=== PATIENT | male | born 1935 | race Two or more races ===

== ENCOUNTER 2024-08-22 21:53 | Inpatient (IN) | payer MEDICARE, MEDICAID ==
[~2024-08-22] VITALS: Ht 167.6 cm; Wt 71.0 kg
[~2024-08-22 21:53] MED LIST: ASCO500T6 PO; FERR324T25 PO; MEMA1TAB5 PO; RIV20T PO; RIVA1DIS3 TD
--- NOTE | 2024-08-22 22:13 | ED.PDOC ---
History of Present Illness HPI Comments 88 y/o M, with a Hx of AFIB w/Xarelto use and dementia, is BIBA for c/o bilateral knees, left thigh and hip, and right elbow pain s/p mechanical fall and injury, today. Per EMS report, patient is a Mexican speaker and sustained injuries after tripping and falling onto his knees and right elbow without any head injuries or LOC, this morning. Patient is stated by family on scene not to have any prior symptoms before fall. Patient has no further reported symptoms, such as weakness, numbness, or tingling sensations. Further Hx cannot be obtained, due to patient being a poor historian secondary to his demented mental status and absence of family/bar staff presents, at time of assessment. Chief Complaint: Fall Injury Time Seen by MD: 22:00 Reviewed Notes: Nurses Notes, Certified Maintenance Welder Notes, Medications, Allergies Allergies: Coded Allergies: NO KNOWN ALLERGIES (Unverified , 08/22/24) Information Source: Patient, Emergency Med Personnel Mode of Arrival: EMS Severity: Moderate Timing: Hours Duration: Since onset Prehospital treatment: 12 Lead EKG, Accucheck, Inorganic Chemical Technician Past Medical History PAST MEDICAL HISTORY: AFIB, Dementia Surgical History: Unknown, Unobtainable Family History Family History: Unknown, Unobtainable Social History Smoker: Unknown, Unobtainable Alcohol: Unknown, Unobtainable Drugs: Unknown, Unobtainable Lives In: Home, Assisted Care Constitutional: denies: chills, diaphoresis, fatigue, fever, malaise, sweats, weakness, others EENTM: denies: blurred vision, double vision, ear bleeding, ear discharge, ear drainage, ear pain, ear ringing, eye pain, eye redness, hearing loss, mouth pain, mouth swelling, nasal discharge, nose bleeding, nose congestion, nose pain, photophobia, tearing, throat pain, throat swelling, voice changes, others Respiratory: denies: cough, hemoptysis, orthopnea, SOB at rest, shortness of breath, SOB with excertion, stridor, wheezing, others Cardiovascular: denies: chest pain, dizzy spells, diaphoresis, Dyspnea on exer tion, edema, irregular heart beat, left arm pain, lightheadedness, palpitations, PND, syncope, others Gastrointestinal: denies: abdomen distended, abdominal pain, blood streaked bowels, constipated, diarrhea, dysphagia, difficulty swallowing, hematemesis, melena, nausea, poor appetite, poor fluid intake, rectal bleeding, rectal pain, vomiting, others Genitourinary: denies: burning, dysuria, flank pain, frequency, hematuria, incontinence, penile discharge, penile sore, pain, testicle pain, testicle swelling, urgency, others Neurological: denies: dizziness, fainting, headache, left sided numbness, left sided weakness, numbness, paresthesia, pre-existing deficit, right sided numbness, right sided weakness, seizure, speech problems, tingling, tremors, weakness, others Musculoskeletal: reports: joint pain (bilateral knees, left thigh and hip, and right elbow ); denies: back pain, gout, joint swelling, muscle pain, muscle stiffness, neck pain, others Integumetry: denies: bruises, change in color, change in hair/nails, dryness, laceration, lesions, lumps, rash, wounds, others Allergic/Immunocompromised: denies: Difficulty Healing, Frequent Infections, Hives, Itching, others Hematologic/Lymphatic: denies: anemia, blood clots, easy bleeding, easy bruising, swollen glands, others Endocrine: denies: excessive hunger, excessive sweating, excessive thirst, excessive urination, flushing, intolerance to cold, intolerance to heat, unexplained weight gain, unexplained weight loss, others Psychiatric: denies: anxiety, bipolar disorder, depression, hopeless, panic d isorder, schizophrenia, sleepless, suicidal, others All Other Systems: Reviewed and Negative Physical Exam General Appearance: Moderate Distress HEENT: Normal ENT Inspection, Pharynx Normal, TMs Normal Neck: Full Range of Motion, Non-Tender, Normal, Normal Inspection Respiratory: Chest Non-Tender, Lungs Clear, No Accessory Muscle Use, No Respiratory Distress, Normal Breath Sounds Cardiovascular: No Edema, No JVD, No Murmur, No Gallop, Normal Peripheral Pulses, Regular Rate/Rhythm Breast Exam: Deferred Gastrointestinal: No Organomegaly, Non Tender, No Pulsatile Mass, Normal Bowel Sounds, Soft Genitalia: Deferred Pelvic: Deferred Rectal: Deferred Extremities: No calf tenderness, Normal capillary refill, No pedal edema Musculoskeletal : Location: Left Apperance: Limited ROM, Tenderness: Moderate Neurologic: Alert, assemblies and installations inspector II-XII nml as Tested, No Motor Deficits, Normal Affect, Normal Mood, No Sensory Deficits Cerebellar Function: Normal Reflexes: Normal Skin: Dry, Normal Color, Warm Lymphatic: No Adenopathy Was a procedure done? Was a procedure done?: No Differential Dx Considerations may include: dislocation, fracture, sprain, musculoskeletal pain, contusions, bruising X-Ray, Labs, Meds, VS Vital Signs Date Time Temp Pulse Resp B/P (MAP) Pulse Ox O2 Delivery O2 Flow Rate FiO2 08/22/24 23:00 98.3 67 19 107/38 (61) 99 98.3 08/22/24 21:56 97.7 112 18 100/65 (77) 94 PROCEDURE(s): PL2CT - PELVIS WO CONTRAST IMPRESSION: 1. Comminuted acute traumatic left intertrochanteric fracture. 2. Prostatomegaly. PROCEDURE(s): RELB - R ELBOW 2V XRAY FINDINGS/IMPRESSION: There is no evidence of acute fracture or dislocation. Small osseous fragment adjacent to the medial humeral epicondyle measuring 6 mm. This appears to be a congenital abnormality versus chronic lesion. The visualized joint space is well maintained. The alignment is anatomical. There is no radiopaque foreign body. IV Hep-Lock has been established We ordered morphine 2 mg IV push for the pain We ordered Zofran IV push for the nausea At this time the patient will be admitted to the hospitalist for the fracture to the left hip The labs are also pending An orthopedic surgery consult will be obtained. The patient is being admitted at this time Images Reviewed?: Images reviewed and evaluated by me Time of 1ST Reevaluation: 22:30 Reevaluation 1ST: Unchanged Time of 2ND Reevaluation: 23:57 Reevaluation 2ND: Unchanged Patient Education/Counseling: Other (patient has dementia) Family Education/Counseling: Diagnosis, Treatment, Prognosis Departure 1 Departure Time of Disposition: 23:58 Impression: Primary Impression: Fracture, intertrochanteric, left femur Qualified Codes: S72.145A - Nondisplaced intertrochanteric fracture of left femur, initial encounter for closed fracture Additional Impressions: History of fall Contusion of right elbow Qualified Codes: S50.01XA - Contusion of right elbow, initial encounter Disposition: ADMITTED INPATIENT Admit to: Med Surg Condition: Fair Critical Care Note Critical Care Time?: No Stability Stability form required: Yes Unstable for transfer: ED Physician Assesment (Clinical assesment) Heart Score Heart Score: Heart Score Response (Comments) Value History N/A 0 EKG N/A 0 Age N/A 0 Risk Factors N/A 0 Troponin N/A 0 Total 0 I personally scribed for SHAYLA BURRELL MD ([email or web address]) on 08/22/24 at 22:13. Electronically submitted by Augustin Gallagher ([email or web address]). I personally scribed for SHAYLA BURRELL MD ([email or web address]) on 08/22/24 at 23:56. Elec tronically submitted by Augustin Gallagher ([email or web address]). SHAYLA BURRELL MD Aug 22, 2024 22:13
--- NOTE | 2024-08-22 23:50 | DVH ---
CLINICAL INDICATION: fall TECHNIQUE: XY R ELBOW 2V XRAY Comparison: None FINDINGS/IMPRESSION: There is no evidence of acute fracture or dislocation. Small osseous fragment adjacent to the medial humeral epicondyle measuring 6 mm. This appears to be a congenital abnormality versus chronic lesion. The visualized joint space is well maintained. The alignment is anatomical. There is no radiopaque foreign body.
--- NOTE | 2024-08-22 23:53 | DVH ---
History: fall Comparison Study: None available at time of dictation. Technique: Multidetector spiral CT of the pelvis was performed from iliac crests to pubic symphysis. Axial, coronal and sagittal multiplanar reformats were performed by the technologist on a separate workstation. Radiation Dose : CT Dose: CTDI volume is 10.02 mGy. Dose-length product is 347.84 mGy*cm Findings: Visualized bowel: Small bowel and colon are normal in caliber and distribution. The appendix is not visualized; however, no secondary findings of acute appendicitis identified. Ascites: Absent Lymphadenopathy: No pelvic or mesenteric lymphadenopathy. Pelvis Wall and Mesentery: Unremarkable. Pelvic Organs: Prostatomegaly measuring up to 5.6 cm in transverse dimension. Musculoskeletal: Comminuted acute traumatic left intertrochanteric fracture. Bladder: Unremarkable IMPRESSION: 1. Comminuted acute traumatic left intertrochanteric fracture. 2. Prostatomegaly. END IMPRESSION:
[2024-08-23 00:20] LABS: Basophils # (auto) 0 10 ^3/uL (0-0.2); Eosinophils # (auto) 0 10 ^3/uL (0-0.8); Hemoglobin 11.9 g/dL (13.5-17.5); Mean Corpuscular Hemoglobin 34.6 pg (28.0-32.0); Monocytes # (auto) 0.9 10 ^3/uL (0-1.3); Neutrophils # (auto) 6.1 10 ^3/uL (1.6-8.6); Platelet Count (auto) 184 10^3/uL (140-450)
[2024-08-23 00:21] LABS: Basophils % (auto) 0.2 % (0.0-2.0); Hematocrit 35.1 % (41.0-53.0); Lymphocytes # (auto) 0.8 10 ^3/uL (0.4-5.4); Lymphocytes % (auto) 10.1 % (10.0-50.0); Mean Corpuscular Volume 101.6 fL (80.0-100.0); Monocytes % (auto) 11.9 % (0.0-12.0); Neutrophils % (auto) 77.8 % (37.0-80.0); Red Blood Cells 3.45 10^6/uL (4.5-5.90); Red Cell Distribution Width 14.1 % (11.8-14.3); White Blood Cell 7.9 10^3/uL (4.4-10.8)
[2024-08-23] MEDS: ONDANSETRON HCL 4 MG/2 ML VIAL IV ONE (00:23)
[2024-08-23 00:25] LABS: Chloride 109 mmol/L (98-107); Potassium 4.7 mmol/L (3.5-5.1); Sodium 141 mmol/L (136-145)
[2024-08-23] MEDS: MORPHINE SULFATE INJ 2 MG/ml SYRG IV ONE (00:25)
[2024-08-23 00:26] LABS: Anion Gap 9 (5-15); Carbon Dioxide 23 mmol/L (20-31)
[2024-08-23 00:27] LABS: Calcium 9.3 mg/dL (8.7-10.4)
[2024-08-23 00:31] LABS: BUN/Creatinine Ratio 15.6 (10.0-20.0); Blood Urea Nitrogen 25 mg/dL (9-23); Glucose 127 mg/dL (74-106)
[2024-08-23 01:06] VITALS: PULSE 86; RESP 18; O2SAT 96
[2024-08-23 05:18] LABS: Urine Bacteria None Seen /hpf (None Seen)
--- NOTE | 2024-08-23 05:43 | DVHHP2 ---
History of Present Illness Reason for Visit: Hip pain History of Present Illness 88-year-old male presents for evaluation of left hip pain. Patient with a history of dementia can not provide history. Seven was at the bedside reports patient falling out of his bed and being unable to bear weight on his left leg. No head trauma or loss of consciousness. No other acute complaints reported. Past Medical History Kidney disease, AFib, hypertension, dementia Past Surgical History Unknown Family History Noncontributory Smoke: No ALCOHOL: none Drugs: None Lives: Residential Review of Systems Review of Systems Unable to complete review of systems due to the advanced dementia. Allergies: Coded Allergies: NO KNOWN ALLERGIES (Unverified , 08/22/24) Medications Current Medications Medications Dose Ordered Sig/Efrain Route Start Time Stop Time Status Last Admin Dose Admin Acetaminophen/ Hydrocodone Bitart 1 tab Q4HP PRN PO 08/23/24 00:45 Ondansetron HCl 4 mg Q4HP PRN IV 08/23/24 00:45 Acetaminophen 650 mg Q6HP PRN PO 08/23/24 00:45 Morphine Sulfate 2 mg Q4HPRN PRN IV 08/23/24 00:45 Exam Vital Signs Vital Signs Date Time Temp Pulse Resp B/P (MAP) Pulse Ox O2 Delivery O2 Flow Rate FiO2 08/23/24 05:00 63 14 103/50 (67) 99 08/23/24 01:06 Room Air* 0 21 21 08/22/24 23:00 98.3 98.3 Exam Gen: 88-year-old male mild distress Skin: Warm, dry, normal color and texture, no rash. HEENT: Normocephalic atraumatic, mucous membranes moist and pink. Neck: Cervical and supraclavicular nodes normal without enlargement, trachea is midline, thyroid gland is normal without masses. Pulmonary: Clear to auscultation and percussion bilaterally. Cardiac: Regular rate and rhythm. No murmur Abdomen: Soft, nontender, nondistended, bowel sounds present all 4 quadrants, no guarding, no rigidity, no organomegaly. Extremities: No cyanosis, clubbing, left lower extremity with limited range of motion with positive distal pulses. Neuro: Cranial nerves II through XII grossly intact, normal affect and speech, no focal motor deficits. Labs/Xrays ORDERING PHYSICIAN: SHAYLA BURRELL MD PROCEDURE(s): RELB - R ELBOW 2V XRAY REASON: fall ORDER NUMBER(s): [id number], ACCESSION NUMBER(s): [id number] CLINICAL INDICATION: fall TECHNIQUE: XY R ELBOW 2V XRAY Comparison: None FINDINGS/IMPRESSION: There is no evidence of acute fracture or dislocation. Small osseous fragment adjacent to the medial humeral epicondyle measuring 6 mm. This appears to be a congenital abnormality versus chronic lesion. The visualized joint space is well maintained. The alignment is anatomical. There is no radiopaque foreign body. RING PHYSICIAN: SHAYLA BURRELL MD PROCEDURE(s): PL2CT - PELVIS WO CONTRAST REASON: fall ORDER NUMBER(s): [id number], ACCESSION NUMBER(s): [id number] History: fall Comparison Study: None available at time of dictation. Technique: Multidetector spiral CT of the pelvis was performed from iliac crests to pubic symphysis. Axial, coronal and sagittal multiplanar reformats were performed by the technologist on a separate workstation. Radiation Dose : CT Dose: CTDI volume is 10.02 mGy. Dose-length product is 347.84 mGy*cm Findings: Visualized bowel: Small bowel and colon are normal in caliber and distribution. The appendix is not visualized; however, no secondary findings of acute appendicitis identified. Ascites: Absent Lymphadenopathy: No pelvic or mesenteric lymphadenopathy. Pelvis Wall and Mesentery: Unremarkable. Pelvic Organs: Prostatomegaly measuring up to 5.6 cm in transverse dimension. Musculoskeletal: Comminuted acute traumatic left intertrochanteric fracture. Bladder: Unremarkable IMPRESSION: 1. Comminuted acute traumatic left intertrochanteric fracture. 2. Prostatomegaly. END IMPRESSION: Labs Test 08/23/24 05:00 08/23/24 00:00 Range/Units White Blood Count 7.9 4.4-10.8 10^3/uL Red Blood Count 3.45 L 4.5-5.90 10^6/uL Hemoglobin 11.9 L 13.5-17.5 g/dL Hematocrit 35.1 L 41.0-53.0 % Mean Corpuscular Volume 101.6 H 80.0-100.0 fL Mean Corpuscular Hemoglobin 34.6 H 28.0-32.0 pg Mean Corpuscular Hemoglobin Concent 34.0 32.0-36.0 g/dL Red Cell Distribution Width 14.1 11.8-14.3 % Platelet Count 184 140-450 10^3/uL Mean Platelet Volume 7.1 6.9-10.8 fL Neutrophils (%) (Auto) 77.8 37.0-80.0 % Lymphocytes (%) (Auto) 10.1 10.0-50.0 % Monocytes (%) (Auto) 11.9 0.0-12.0 % Eosinophils (%) (Auto) 0.0 0.0-7.0 % Basophils (%) (Auto) 0.2 0.0-2.0 % Neutrophils # (Auto) 6.1 1.6-8.6 10 ^3/uL Lymphocytes # (Auto) 0.8 0.4-5.4 10 ^3/uL Monocytes # (Auto) 0.9 0-1.3 10 ^3/uL Eosinophils # (Auto) 0 0-0.8 10 ^3/uL Basophils # (Auto) 0 0-0.2 10 ^3/uL Nucleated Red Blood Cells 0.0 % Sodium Level 141 136-145 mmol/L Potassium Level 4.7 3.5-5.1 mmol/L Chloride Level 109 H 98-107 mmol/L Carbon Dioxide Level 23 20-31 mmol/L Anion Gap 9 5-15 Blood Urea Nitrogen 25 H 9-23 mg/dL Creatinine 1.60 H 0.700-1.30 mg/dL Glomerular Filtration Rate Calc 41 >90 mL/min BUN/Creatinine Ratio 15.6 10.0-20.0 Serum Glucose 127 H 74-106 mg/dL Calcium Level 9.3 8.7-10.4 mg/dL Assessment/Plan Assessment/Plan Assessment Left femoral intertrochanteric fracture Dementia Chronic kidney disease Plan Admit the patient to [facility] to the hospitalist Orthopedic consultation NPO Pain management Continue treatment per orders. Plan discussed with: Other My Orders Orders - DAVID OSMAN Procedure Category Date Status Time *Consult Dr. Weston CONS 08/23/24 Transmitted Melia 00:41 Admit ADMIT 08/23/24 Transmitted 00:41 Hydrocodone-Acet PHA 11/20/24 In Process 5/325mg Tab ([place] 00:45 Ondansetron Hcl PHA 08/23/24 In Process (Zofran) 00:45 Complete Blood Count LAB 08/24/24 Verified 04:00 Comprehensive LAB 08/24/24 Verified Metabolic Panel 04:00 Npo (Nothing By DIET 08/23/24 Transmitted Mouth) Diet Breakfast Condition: Stable EREN 08/23/24 In Process 00:41 Acetaminophen Tablet PHA 08/23/24 In Process (Tylenol Tablet) 00:45 Bedrest With Bathroom EREN 08/23/24 In Process Privileg 00:41 Morphine Sulfate PHA 08/23/24 In Process Injection 00:45 Date of Service: Aug 23, 2024 Billing Provider: DAVID OSMAN Common Visit Codes: [id number] INP/OBS CARE (HIGH) DAVID OSMAN Aug 23, 2024 05:43
[2024-08-23 05:45] LABS: Urine Blood Negative /uL (Negative); Urine Clarity Turbid (Clear); Urine Color Yellow (Yellow); Urine Hyaline Cast FEW /lpf (0 - 2); Urine Protein, UAD 1+ (Negative); Urine Specific Gravity 1.028 (1.001-1.035); Urine Urobilinogen 2 mg/dL (Negative); Urine WBC 6 /hpf (0 - 3)
[2024-08-23 07:49] VITALS: PULSE 77; RESP 18; O2SAT 94
--- NOTE | 2024-08-23 10:18 | DVHINCON2 ---
ESTRADA QUICK 08/23/24 1018: Date of service: Aug 23, 2024 Reason for Consultation Left hip fracture History of Present Illness Mr. Flowers is an 88-year-old male who was brought to the hospital by his son due to concerns of left hip pain in the inability to ambulate since a fall yesterday morning. Patient has a history of dementia and was unable to provide history but patient's son was at bedside who reports that the patient fell out of bed yesterday morning and helped him back into bed and since he had not appear in pain thought he was fine but when he tried getting up and walking the patient reports that he was experiencing severe pain and was unable to bear weight. Patient's son reports that he was already having difficulty ambulating before this fall and would walk very slow with the assistance of a cane. Patient's son denied the patient experienced any head trauma, loss of consciousness, chest pain, shortness of breath, nausea, vomiting, fever, or chills. Past Medical History Kidney disease, AFib, hypertension, dementia Past Surgical History Denies Family History Noncontributory Social History Patient denies smoking, EtOH, or illicit substance abuse Allergies: Coded Allergies: NO KNOWN ALLERGIES (Unverified , 08/22/24) Current Medications Current Medications Medications (Trade) Dose Ordered Sig/Efrain Route PRN Reason Start Time Stop Time Status Last Admin Acetaminophen/ Hydrocodone Bitart ([place] 5/325MG Tab) 1 tab Q4HP PRN PO MODERATE PAIN (4-6 PAIN SCALE) 08/23/24 00:45 Ondansetron HCl (Zofran) 4 mg Q4HP PRN IV NAUSEA / VOMITING 08/23/24 00:45 Acetaminophen (Tylenol Tablet) 650 mg Q6HP PRN PO PAIN SCALE 1-3 OR TEMP>100.4 08/23/24 00:45 Morphine Sulfate 2 mg Q4HPRN PRN IV SEVERE PAIN (7-10 PAIN SCALE) 08/23/24 00:45 Haloperidol Lactate (Haldol) 2.5 mg Q4HP PRN IM AGITATION 08/23/24 10:00 UNV Review of Systems 10 point review of systems negative except as per HPI Vital Signs Vital Signs Date Time Temp Pulse Resp B/P (MAP) Pulse Ox O2 Delivery O2 Flow Rate FiO2 08/23/24 07:49 77 18 94 Room Air* 0 21 08/23/24 07:48 97.2 126/74 (91) 97.2 Physical Exam General appearance: A&O x4 in no acute distress HEENT: Normal ENT inspection, pharynx normal, TMs normal Neck: Full range of motion, nontender, normal inspection Respiratory: Chest nontender, without accessory muscle use, no respiratory distr ess Cardiovascular: No edema, no JVD, normal peripheral pulses Gastrointestinal: Soft, nontender, no organomegaly. Musculoskeletal: Left hip range of motion grossly limited with pain on slight movement, no calf tenderness, normal capillary refill, no pedal edema, neurovascularly intact. Skin: Dry, normal color, warm Lymphatic: No adenopathy Labs/Diagnostic Data Labs Test 08/23/24 09:36 08/23/24 05:00 08/23/24 00:00 Range/Units Urine Color Yellow Yellow Urine Clarity Turbid H Clear Urine pH 5.0 5.0-9.0 Urine Specific [place] 1.028 1.001-1.035 Urine Protein 1+ H Negative Urine Ketones Trace Negative Urine Blood Negative Negative /uL Urine Nitrite Negative Negative Urine Bilirubin Negative Negative Urine Urobilinogen 2 H Negative mg/dL Urine Leukocyte Esterase Negative Negative /uL Urine RBC 3 0 - 3 /hpf Urine WBC 6 0 - 3 /hpf Urine Squamous Epithelial Cells Few <5 /hpf Urine Bacteria None seen None Seen /hpf Urine Hyaline Casts Few 0 - 2 /lpf Urine Glucose Normal Normal mg/dL White Blood Count 7.9 4.4-10.8 10^3/uL Red Blood Count 3.45 L 4.5-5.90 10^6/uL Hemoglobin 11.9 L 13.5-17.5 g/dL Hematocrit 35.1 L 41.0-53.0 % Mean Corpuscular Volume 101.6 H 80.0-100.0 fL Mean Corpuscular Hemoglobin 34.6 H 28.0-32.0 pg Mean Corpuscular Hemoglobin Concent 34.0 32.0-36.0 g/dL Red Cell Distribution Width 14.1 11.8-14.3 % Platelet Count 184 140-450 10^3/uL Mean Platelet Volume 7.1 6.9-10.8 fL Neutrophils (%) (Auto) 77.8 37.0-80.0 % Lymphocytes (%) (Auto) 10.1 10.0-50.0 % Monocytes (%) (Auto) 11.9 0.0-12.0 % Eosinophils (%) (Auto) 0.0 0.0-7.0 % Basophils (%) (Auto) 0.2 0.0-2.0 % Neutrophils # (Auto) 6.1 1.6-8.6 10 ^3/uL Lymphocytes # (Auto) 0.8 0.4-5.4 10 ^3/uL Monocytes # (Auto) 0.9 0-1.3 10 ^3/uL Eosinophils # (Auto) 0 0-0.8 10 ^3/uL Basophils # (Auto) 0 0-0.2 10 ^3/uL Nucleated Red Blood Cells 0.0 % Sodium Level 141 136-145 mmol/L Potassium Level 4.7 3.5-5.1 mmol/L Chloride Level 109 H 98-107 mmol/L Carbon Dioxide Level 23 20-31 mmol/L Anion Gap 9 5-15 Blood Urea Nitrogen 25 H 9-23 mg/dL Creatinine 1.60 H 0.700-1.30 mg/dL Glomerular Filtration Rate Calc 41 >90 mL/min BUN/Creatinine Ratio 15.6 10.0-20.0 Serum Glucose 127 H 74-106 mg/dL Calcium Level 9.3 8.7-10.4 mg/dL Pelvic CT scan reviewed and demonstrated: 1. Comminuted acute traumatic left intertrochanteric fracture. 2. Prostatomegaly. Assessment Left intertrochanteric hip fracture Plan/Recommendation I had a lengthy discussion with the patient regarding nonoperative versus operative management and after discussing his case and reviewing his imaging studies with Dr. Reddy we have recommended an open versus closed IM nail fixation of his left intertrochanteric hip fracture. I discussed all of the risks and complications involved with surgery including but not limited to bleeding, infection, nerve injury, chronic pain, nonunion, malunion, need for further surgery, blood clots, DVT, PE, cardiac and pulmonary complications, and even . Patient and son understood and agreed to proceed with the surgery. We will plan to undergo surgery tomorrow afternoon if schedule allows and patient remains medically stable and is cleared from a cardiology standpoint. Thank you for allowing us to participate in the care of your patient. Plan discussed with: Patient TATIANA REDDY MD 08/24/24 1425: Allergies: Coded Allergies: NO KNOWN ALLERGIES (Unverified , 08/22/24) Plan discussed with: Patient, Son ESTRADA QUICK MARCELLO Aug 23, 2024 10:18 TATIANA REDDY MD Aug 24, 2024 14:25
[2024-08-23 10:19] LABS: INR 1.28 (0.9-1.15); Partial Thromboplastin Time 33.3 SEC (24.5-34.5); Prothrombin Time 13.3 sec (9.3-11.8)
[2024-08-23] MEDS: SODIUM CHLORIDE 0.9% 1,000 ML IV SCH (10:34)
--- NOTE | 2024-08-23 10:59 | DVH ---
left hip radiograph CLINICAL INDICATION: pre-op eval TECHNIQUE: 2 radiographic views of the left hip were obtained. Comparison: XY R ELBOW 2V XRAY on DOS: 08/22/24 FINDINGS: Comminuted acute traumatic left intertrochanteric fracture. IMPRESSION: Comminuted acute traumatic left intertrochanteric fracture.
--- NOTE | 2024-08-23 11:12 | DVH ---
EXAM: CT HEAD WITHOUT CONTRAST HISTORY: FALL COMPARISON: CT PELVIS WO CONTRAST on DOS: 08/22/24 TECHNIQUE: Axial images of the head were obtained and reformatted in coronal and sagittal planes. All CT scans at this medical facility are performed using dose modulation techniques as appropriate t o a performed exam including the following: Automated exposure control was utilized; adjustment of th e MA and/or KV according to patient size; and use of iterative reconstruction technique. CT Dose: CTDI volume is 53.02 mGy. Dose-length product is 1045.01 mGy*cm FINDINGS: There is a moderate size chronic cortical infarct in the left frontal lobe with associated encephalom alacia. There is age concordant generalized parenchymal volume loss. There are chronic small-vessel ischemic changes in the supratentorial white matter. There is no evidence of acute intracranial hemorrhage, mass, mass effect midline shift. There is no h ydrocephalus or extra-axial fluid collection. The visualized paranasal sinuses and mastoid air cells are clear. The calvarium is intact. IMPRESSION: 1. No acute intracranial process. 2. 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 HS:Y
[2024-08-23] MEDS: HALOPERIDOL LACTATE 5 MG/ML INJ VIAL IM PRN (12:22)
--- NOTE | 2024-08-23 14:34 | DVHPN2 ---
Reviewed: Care Plan, H&P, Labs, Medications, Previous Orders, Radiology Changes from previous H/P or p: No Changes Objective Vitals Vital Signs Date Time Temp Pulse Resp B/P (MAP) Pulse Ox O2 Delivery O2 Flow Rate FiO2 08/23/24 07:49 77 18 94 Room Air* 0 21 08/23/24 07:48 97.2 126/74 (91) 97.2 Medications Current Medications Medications Dose Ordered Sig/Efrain Route Start Time Stop Time Status Last Admin Dose Admin Acetaminophen/ Hydrocodone Bitart 1 tab Q4HP PRN PO 08/23/24 00:45 Ondansetron HCl 4 mg Q4HP PRN IV 08/23/24 00:45 Acetaminophen 650 mg Q6HP PRN PO 08/23/24 00:45 Morphine Sulfate 2 mg Q4HPRN PRN IV 08/23/24 00:45 Haloperidol Lactate 2.5 mg Q4HP PRN IM 08/23/24 10:00 08/23/24 12:22 2.5 MG Sodium Chloride 1,000 ml @ 100 mls/hr Q10H IV 08/23/24 10:15 08/23/24 10:34 100 MLS/HR Laboratory Results Laboratory Tests 08/23/24 00:00 Chemistry Test 08/23/24 00:00 Calcium Level 9.3 mg/dL (8.7-10.4) Coagulation Test 08/23/24 09:36 Prothrombin Time 13.3 sec (9.3-11.8) H Prothrombin Time INR 1.28 (0.9-1.15) H Activated Partial Thromboplast Time 33.3 SEC (24.5-34.5) Urinalysis Test 08/23/24 05:00 Urine Color Yellow (Yellow) Urine Clarity Turbid (Clear) H Urine pH 5.0 (5.0-9.0) Urine Specific [place] 1.028 (1.001-1.035) Urine Protein 1+ (Negative) H Urine Ketones Trace (Negative) Urine Blood Negative /uL (Negative) Urine Nitrite Negative (Negative) Urine Bilirubin Negative (Negative) Urine Urobilinogen 2 mg/dL (Negative) H Urine Leukocyte Esterase Negative /uL (Negative) Urine RBC 3 /hpf (0 - 3) Urine WBC 6 /hpf (0 - 3) Urine Squamous Epithelial Cells Few /hpf (<5) Urine Bacteria None seen /hpf (None Seen) Urine Hyaline Casts Few /lpf (0 - 2) Urine Glucose Normal mg/dL (Normal) Labs and/or images reviewed: Labs reviewed by me, Image(s) reviewed by me Assessment/Plan Assessment/Plan Acute right intertrochanteric feature femur: Orthopedic planning for surgery tomorrow Dementia Hypertension History of AFib Time spent 45 minutes Condition guarded Patient is full code Advanced care planning time 20 minutes Plan discussed with: Patient My Orders Orders - ABBIE PALOMINO MD Procedure Category Date Status Time Head Without Contrast CT 08/23/24 Resulted 09:50 Urine Bacterial DORINDA 08/23/24 In Process Culture 09:50 Haloperidol Lactate PHA 08/23/24 In Process Injection (Haldol) 10:00 Sodium Chloride 0.9% PHA 08/23/24 In Process 10:15 Date of Service: Aug 23, 2024 Billing Provider: ABBIE PALOMINO MD Common Visit Codes: [id number] INP/OBS CARE(HIGH) Secondary Visit Codes: [id number] CARE PLAN 30 MINUTES ABBIE PALOMINO MD Aug 23, 2024 14:34
--- NOTE | 2024-08-23 14:52 | ECG ---
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
[2024-08-23 19:50] VITALS: PULSE 100; RESP 16; O2SAT 93
[2024-08-23] MEDS: ONDANSETRON HCL 4 MG/2 ML VIAL IV PRN (23:47)
[2024-08-23] MEDS: MORPHINE SULFATE INJ 2 MG/ml SYRG IV PRN (23:47)
[2024-08-24] VITALS (8 sets, daily range): BP systolic 103–109; BP diastolic 57–68; PULSE 82–106; RESP 12–20; TEMP 97.9–98.7; O2SAT 93–99
[2024-08-24 06:34] LABS: Basophils # (auto) 0 10 ^3/uL (0-0.2); Basophils % (auto) 0.5 % (0.0-2.0); Eosinophils # (auto) 0 10 ^3/uL (0-0.8); Eosinophils % (auto) 0.6 % (0.0-7.0); Hematocrit 28.9 % (41.0-53.0); Mean Corpuscular Hgb Conc. 34.1 g/dL (32.0-36.0); Monocytes # (auto) 0.9 10 ^3/uL (0-1.3)
[2024-08-24 06:36] LABS: Hemoglobin 9.8 g/dL (13.5-17.5); Lymphocytes # (auto) 1.4 10 ^3/uL (0.4-5.4); Lymphocytes % (auto) 17.1 % (10.0-50.0); Mean Corpuscular Hemoglobin 35.3 pg (28.0-32.0); Mean Corpuscular Volume 103.5 fL (80.0-100.0); Monocytes % (auto) 10.8 % (0.0-12.0); Neutrophils # (auto) 5.9 10 ^3/uL (1.6-8.6); Platelet Count (auto) 147 10^3/uL (140-450); Red Blood Cells 2.79 10^6/uL (4.5-5.90); White Blood Cell 8.3 10^3/uL (4.4-10.8)
[2024-08-24 06:58] LABS: Alanine Aminotransferase 16 U/L (7-40); Albumin 3.1 g/dL (3.2-4.8); Alkaline Phosphatase 80 U/L (46-116); Anion Gap 9 (5-15); Aspartate Aminotransferase 41 U/L (13-40); BUN/Creatinine Ratio 18.7 (10.0-20.0); Blood Urea Nitrogen 25 mg/dL (9-23); Calcium 8.2 mg/dL (8.7-10.4); Carbon Dioxide 20 mmol/L (20-31); Chloride 112 mmol/L (98-107); Glucose 103 mg/dL (74-106); Potassium 4.5 mmol/L (3.5-5.1); Sodium 141 mmol/L (136-145); Total Protein 5.6 g/dL (5.7-8.2)
--- NOTE | 2024-08-24 08:42 | DVH ---
CHEST RADIOGRAPH Indication: Pre-op evaluation/pain Technique: Single frontal view of the chest was obtained Comparison: none FINDINGS: Lines and Tubes: None Lungs: No focal consolidation. Pleura: No effusion. No pneumothorax. Cardiomediastinal contours: Cardiomegaly Bones: No acute osseous abnormality. IMPRESSION: Cardiomegaly with CHF.
--- NOTE | 2024-08-24 08:45 | DVHPN2 ---
Reviewed: Care Plan, H&P, Labs, Medications, Previous Orders, Radiology Changes from previous H/P or p: No Changes Objective Vitals Vital Signs Date Time Temp Pulse Resp B/P (MAP) Pulse Ox O2 Delivery O2 Flow Rate FiO2 08/24/24 08:00 76 08/24/24 06:49 17 105/58 (74) 98 08/23/24 19:50 Room Air* 0 21 08/23/24 19:50 98.6 98.6 Medications Current Medications Medications Dose Ordered Sig/Efrain Route Start Time Stop Time Status Last Admin Dose Admin Acetaminophen/ Hydrocodone Bitart 1 tab Q4HP PRN PO 08/23/24 00:45 Ondansetron HCl 4 mg Q4HP PRN IV 08/23/24 00:45 08/24/24 00:23 4 MG Acetaminophen 650 mg Q6HP PRN PO 08/23/24 00:45 Morphine Sulfate 2 mg Q4HPRN PRN IV 08/23/24 00:45 08/24/24 00:22 2 MG Haloperidol Lactate 2.5 mg Q4HP PRN IM 08/23/24 10:00 08/23/24 12:22 2.5 MG Sodium Chloride 1,000 ml @ 100 mls/hr Q10H IV 08/23/24 10:15 08/24/24 06:21 100 MLS/HR Laboratory Results Laboratory Tests 08/24/24 06:09 Chemistry Test 08/24/24 06:06 08/24/24 06:09 Magnesium Level Pending Albumin 3.1 g/dL (3.2-4.8) L Calcium Level 8.2 mg/dL (8.7-10.4) L Total Protein 5.6 g/dL (5.7-8.2) L Coagulation Test 08/23/24 09:36 Prothrombin Time 13.3 sec (9.3-11.8) H Prothrombin Time INR 1.28 (0.9-1.15) H Activated Partial Thromboplast Time 33.3 SEC (24.5-34.5) Lipid panel Test 08/24/24 06:06 Cholesterol Level Pending HDL Cholesterol Pending Triglycerides Level Pending Cardiac Markers Test 08/24/24 06:06 B-Type Natriuretic Peptide Pending LFT Test 08/24/24 06:09 Alanine Aminotransferase (ALT) 16 U/L (7-40) Alkaline Phosphatase 80 U/L (46-116) Aspartate Amino Transferase (AST) 41 U/L (13-40) H Total Bilirubin 1.0 mg/dL (0.2-1.0) HgA1c, TSH Test 08/24/24 06:06 Hemoglobin A1c Pending Thyroid Stimulating Hormone (TSH) Pending Urinalysis Test 08/23/24 05:00 Urine Color Yellow (Yellow) Urine Clarity Turbid (Clear) H Urine pH 5.0 (5.0-9.0) Urine Specific [place] 1.028 (1.001-1.035) Urine Protein 1+ (Negative) H Urine Ketones Trace (Negative) Urine Blood Negative /uL (Negative) Urine Nitrite Negative (Negative) Urine Bilirubin Negative (Negative) Urine Urobilinogen 2 mg/dL (Negative) H Urine Leukocyte Esterase Negative /uL (Negative) Urine RBC 3 /hpf (0 - 3) Urine WBC 6 /hpf (0 - 3) Urine Squamous Epithelial Cells Few /hpf (<5) Urine Bacteria None seen /hpf (None Seen) Urine Hyaline Casts Few /lpf (0 - 2) Urine Glucose Normal mg/dL (Normal) Labs and/or images reviewed: Labs reviewed by me, Image(s) reviewed by me Assessment/Plan Assessment/Plan Acute right intertrochanteric feature femur: Orthopedic planning for surgery today Dementia Hypertension History of AFib Time spent 45 minutes Condition guarded Patient is full code Advanced care planning time 20 minutes Plan discussed with: Patient My Orders Orders - ABBIE PALOMINO MD Procedure Category Date Status Time Head Without Contrast CT 08/23/24 Resulted 09:50 Urine Bacterial DORINDA 08/23/24 In Process Culture 09:50 Haloperidol Lactate PHA 08/23/24 In Process Injection (Haldol) 10:00 Sodium Chloride 0.9% PHA 08/23/24 In Process 10:15 Document Home Meds ED NURSING 08/23/24 Transmitted Date of Service: Aug 24, 2024 Billing Provider: ABBIE PALOMINO MD Common Visit Codes: [id number] INP/OBS CARE(HIGH) ABBIE PALOMINO MD Aug 24, 2024 08:45
[2024-08-24 08:56] LABS: Magnesium 2.2 mg/dL (1.6-2.6)
--- NOTE | 2024-08-24 09:12 | DVHSR ---
APPROVED REPORT EXAM: Two-dimensional and M-mode echocardiogram with Doppler and color Doppler. Blood Pressure: 126/74 mmHg INDICATION Pre-Op RISK FACTORS Height: 5' 6", Weight: 150 DIMENSIONS LVDd4.2 (3.8-5.7cm)LA (2D)3.0 (1.9-4.0cm)Aortic Root3.3 (2.0-3.7cm) LVDs3.1 (2.5-4.0cm)LA (MM) (1.9-4.0cm)Aortic Cusp Exc2.0 (1.5-2.0cm) EF (%) 55.0 (55-70%)Rt. Atrium3.1 (1.9-4.0cm)Asc. Aorta cm IVSd1.2 (0.7-1.1cm)RV (D) (1.8-2.4cm) PWd1.1 (0.7-1.1cm) Mitral Valve MitralMitral Stenosis E wave0.70m/sMV Mean GR.mmHg A wave1.10m/sMV Peak GR.mmHg E/A ratio0.62D MVAcm2 Aortic Valve Aortic ValveAortic Stenosis V11.40m/Josiane Mean GR.4mmHg V21.40m/Josiane Peak GR.8mmHg LVOT Diameter2.3 (1.8-2.4cm)Doppler AVA4.15cm2 Pulmonic Valve V20.80m/s Tricuspid Valve TR Velocity2.60m/s [id number] Conclusion Normal left ventricular size and dimension. Normal left ventricular systolic function estimated ejec tion fraction 55%. There is a grade1 diastolic dysfunction. Normal right ventricular size and dimension. Normal right ventricular systolic function. Slightly i ncreased right ventricular systolic [id number] mm of mercury. Normal biatrial size and dimension. Normal aortic valve structure and function. Normal mitral valve structure and function. Normal tricuspid valve structure and function. Pulmonary valve is grossly normal. No pericardial effusion.
--- NOTE | 2024-08-24 09:36 | DVHINCON2 ---
Date Seen: Aug 24, 2024 Referring Physician SAM Murrieta Reason for Consultation Cardiac risk stratification History of Present Illness This is a 88-year-old Malay-speaking male patient who presents to the emergency room status post mechanical fall. At the time of assessment, the patient is only alert and oriented to self given his history of dementia. Patient son is at bedside who was able to provide history. According to the patient's son, the patient sustained an unwitnessed fall at home The patient was found out of bed and on the floor. The patient began complaining of pain to bilateral knees, left hip and right elbow. Emergency medical services were alessandro led and the patient was brought to the emergency room for further evaluation. Imaging has revealed a comminuted acute traumatic left intertrochanteric fracture. Orthopedic team has requested a cardiology consult for cardiac risk stratification prior to pending closed versus open ORIF of left hip fracture. Initial twelve lead electrocardiogram reveals normal sinus rhythm with inc omplete right bundle branch block and borderline prolonged QTc interval. Significant past medical history includes paroxysmal atrial fibrillation (on Xarelto) and dementia. The patient and his son are poor historians. 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 Past Medical History Past medical history reviewed. No other significant than mentioned above. Past Surgical History The patient's son reports that the patient has no previous surgeries Family History Family history reviewed. Social History Denies any illicit drug use Patient has a 30 pack-year history, quit smoking approximately 30 years ago Patient quit drinking alcohol approximately four years ago Allergies: Coded Allergies: NO KNOWN ALLERGIES (Unverified , 08/22/24) Home Meds Home medications reviewed. Current Medications Current Medications Medications (Trade) Dose Ordered Sig/Efrain Route PRN Reason Start Time Stop Time Status Last Admin Haloperidol Lactate (Haldol) 2.5 mg Q4HP PRN IM AGITATION 08/23/24 10:00 08/23/24 12:22 Sodium Chloride 1,000 ml @ 100 mls/hr Q10H IV 08/23/24 10:15 08/24/24 06:21 Review of Systems Constitutional: No symptom reported Ears, Nose, & Throat: No symptom reported Eyes: No symptom reported Neurological: No symptoms reported Pulmonary/Respiratory: No symptoms reported Cardiovascular: No symptom reported Gastrointestinal: No symptom reported Genitourinary: No symptom reported Musculoskeletal: Left hip pain Skin: No symptom reported Psychiatric: No symptom reported Endocrine: No symptom reported Hematologic/Lymphatic: No symptom reported Vital Signs Vital Signs Date Time Temp Pulse Resp B/P (MAP) Pulse Ox O2 Delivery O2 Flow Rate FiO2 08/24/24 09:21 92 08/24/24 07:45 16 93 Room Air* 0 08/24/24 07:45 99.4 132/54 (80) 99.4 Physical Exam General Appearance: Cooperative. Thin Pulmonary/Respiratory: Clear, bilateral breaths sounds. Cardiovascular/Chest: Regular rate and rhythm. Peripheral Pulses: 2+ Radial (R). 2+ Radial (L). Abdominal Exam: Normal bowel sounds. Ankle Exam: Negative ankle edema Lower extremities: Negative lower extremity edema Neuro/Mental Status: Alert and oriented to self. Thoughts/Psych: Deferred Appearance: No acute distress. Skin Exam: Normal inspection. Normal color. Warm and dry. Labs/Diagnostic Data Labs Test 08/24/24 06:09 08/24/24 06:06 08/23/24 09:36 08/23/24 05:00 Range/Units White Blood Count 8.3 4.4-10.8 10^3/uL Red Blood Count 2.79 L 4.5-5.90 10^6/uL Hemoglobin 9.8 #L 13.5-17.5 g/dL Hematocrit 28.9 #L 41.0-53.0 % Mean Corpuscular Volume 103.5 H 80.0-100.0 fL Mean Corpuscular Hemoglobin 35.3 H 28.0-32.0 pg Mean Corpuscular Hemoglobin Concent 34.1 32.0-36.0 g/dL Red Cell Distribution Width 14.0 11.8-14.3 % Platelet Count 147 140-450 10^3/uL Mean Platelet Volume 7.0 6.9-10.8 fL Neutrophils (%) (Auto) 71.0 37.0-80.0 % Lymphocytes (%) (Auto) 17.1 10.0-50.0 % Monocytes (%) (Auto) 10.8 0.0-12.0 % Eosinophils (%) (Auto) 0.6 0.0-7.0 % Basophils (%) (Auto) 0.5 0.0-2.0 % Neutrophils # (Auto) 5.9 1.6-8.6 10 ^3/uL Lymphocytes # (Auto) 1.4 0.4-5.4 10 ^3/uL Monocytes # (Auto) 0.9 0-1.3 10 ^3/uL Eosinophils # (Auto) 0 0-0.8 10 ^3/uL Basophils # (Auto) 0 0-0.2 10 ^3/uL Nucleated Red Blood Cells 0.0 % Sodium Level 141 136-145 mmol/L Potassium Level 4.5 3.5-5.1 mmol/L Chloride Level 112 H 98-107 mmol/L Carbon Dioxide Level 20 20-31 mmol/L Anion Gap 9 5-15 Blood Urea Nitrogen 25 H 9-23 mg/dL Creatinine 1.34 H 0.700-1.30 mg/dL Glomerular Filtration Rate Calc 51 >90 mL/min BUN/Creatinine Ratio 18.7 10.0-20.0 Serum Glucose 103 74-106 mg/dL Calcium Level 8.2 L 8.7-10.4 mg/dL Total Bilirubin 1.0 0.2-1.0 mg/dL Aspartate Amino Transferase (AST) 41 H 13-40 U/L Alanine Aminotransferase (ALT) 16 7-40 U/L Alkaline Phosphatase 80 46-116 U/L Total Protein 5.6 L 5.7-8.2 g/dL Albumin 3.1 L 3.2-4.8 g/dL Magnesium Level 2.2 1.6-2.6 mg/dL Triglycerides Level 92 < 150 mg/dL Cholesterol Level 97 < 200 mg/dL LDL Cholesterol 42 < 100 mg/dL HDL Cholesterol 37 L 40-59 mg/dL Thyroid Stimulating Hormone (TSH) 11.35 H 0.55-4.78 uIU/mL Prothrombin Time 13.3 H 9.3-11.8 sec Prothrombin Time INR 1.28 H 0.9-1.15 Activated Partial Thromboplast Time 33.3 24.5-34.5 SEC Urine Color Yellow Yellow Urine Clarity Turbid H Clear Urine pH 5.0 5.0-9.0 Urine Specific [place] 1.028 1.001-1.035 Urine Protein 1+ H Negative Urine Ketones Trace Negative Urine Blood Negative Negative /uL Urine Nitrite Negative Negative Urine Bilirubin Negative Negative Urine Urobilinogen 2 H Negative mg/dL Urine Leukocyte Esterase Negative Negative /uL Urine RBC 3 0 - 3 /hpf Urine WBC 6 0 - 3 /hpf Urine Squamous Epithelial Cells Few <5 /hpf Urine Bacteria None seen None Seen /hpf Urine Hyaline Casts Few 0 - 2 /lpf Urine Glucose Normal Normal mg/dL Assessment Preprocedural cardiovascular examination Paroxysmal atrial fibrillation (on Xarelto) Chronic HFpEF, NYHA class II Acute kidney injury ?Thyroid disease Dementia Plan/Recommendation (Dr. Beltran): Transthoracic echocardiogram reveals EF 55%, RVSP 35 mmHg. Chest x-ray reveals cardiomegaly. Revised cardiac risk index (René criteria): 1 point (6.0% risk of major cardiac event). The patient has an underlying history of congestive heart failure. Patient's family denies that the patient has any previous history of coronary artery disease. Prior to admission, the patient had a fair functional capacity, according to family. Per Cardiology standpoint, the patient is at a moderate risk for moderate risk surgery. There is no additional cardiac workup indicated prior to surgery. We will recommend to resume NOAC therapy within 24 hours status post procedure if there is a low postprocedural bleeding risk. We will recommend to resume NOAC therapy within 48-72 hours if there is a high postprocedural bleeding risk. Thank you for allowing us to care for this patient. Please call with any questions or concerns. Critical care time spent: 40 minutes This medical document was created using an electronic medical record system with voice recognition software and computerized dictation system. Although this document has been carefully reviewed, there might still be some phonetic and typographical errors. Occasional wrong-word or ``sound-alike substitutions may have occurred due to the inherent limitations of voice recognition software. These areas are purely typographical due to imperfections of the software programs and do not reflect any compromise in the patient's medical care. Please read the chart carefully and recognize, using context, where these substitutions have occurred. Plan discussed with: Patient, Son NYHA Physical activity limitations: Class2(Slight)fatigue,sob Date of Service: Aug 24, 2024 Billing Provider: KATIE BELTRAN MD Cardiology Common Codes: [id number] INP/OBS CARE (High) Cardiology Consultation Codes: [id number] CONSULT <45MIN PONCE THOMAS [facility] Aug 24, 2024 09:35
[2024-08-24] MEDS ORDERED: fentaNYL CITRATE 100 MCG/2 ML VL ONE (13:18)
[2024-08-24] MEDS ORDERED: HYDROmorphone HCL 2 MG/ML VL/or syr ONE (13:18)
[2024-08-24] MEDS ORDERED: MIDAZOLAM HCL 2MG/2ML 2ml VIAL (1mg/ml) ONE (13:18)
[2024-08-24] MEDS ORDERED: DexAMETHasone SOD PHOS 10MG/1ML VIAL INJ ONE (13:19)
[2024-08-24] MEDS ORDERED: PROPOFOL 10 MG/ML 20 ML IV ONE (13:19)
[2024-08-24] MEDS ORDERED: GLYCOPYRROLATE 0.2 MG/ML 1ML VIAL ONE (13:19)
--- NOTE | 2024-08-24 14:30 | DVHOP2 ---
Operative Report - 2 Report Details Date: 08/24/24 Preop Diagnosis: Left hip intertrochanteric fracture Postop Diagnosis: Left hip intertrochanteric fracture Surgeon: Tatiana Reddy MD Anesthesiologist: Dr. Cowna Anesthesia: Mac Implant: Arthrex AOS hip fracture system Consent: The patient was informed of the risks and benefits of the procedure. These include but are not limited to complications of anesthesia, postoperative infection, incomplete relief of symptoms, recurrence of symptoms, damage to blood vessels, nerves and tendons, deep venous thrombosis, pulmonary embolism and possible need for repeat surgery in the future. Estimated Blood Loss: Less than 10 mL Indications for Surgery: The patient is a 88-year-old male who presented to the emergency room with a history of hip pain status post fall. He was minimally ambulatory before the surgery. Clinical and radiological evaluation demonstrated intertrochanteric fracture. Nonoperative and operative management options were discussed. Surgery in the form of hip closed versus open reduction was discussed with him and his family with Hungarian interpretation. Benefits, risks and complications were discussed. Specific complications of the surgery such as neurovascular injury, infection, arthrofibrosis, malunion, nonunion, hardware failure loss of limb or life were discussed. He decided to proceed with the surgical option Name of Procedure Performed Left hip closed reduction with trochanteric nailing Procedure Details Procedure Details: Patient was identified in the preoperative holding area and the surgical site was marked. The consent was verified. He was brought into the operating room and placed supine on the operating table. General anesthesia was administered. Intravenous antibiotics were given. The extremity was prepped and draped in the usual sterile manner. A timeout was called out to confirm the identity of the patient, the nature of surgery, the site of surgery, the availability of implants and x-rays and allergies to medications. The patient was placed on the hip fracture distraction system. Other extremity was placed on support in abduction and flexion. The C-arm was brought in and gentle traction was applied, some abduction, internal rotation and adduction was then applied. This maneuver was repeated once for better reduction. Significant comminution of the greater trochanter was noted. An incision was made 2 cm proximal to the greater trochanter. The IT band was incised. The greater trochanter was palpated and a guidepin was inserted. AP and lateral views were obtained to confirm the trajectory. Next a proximal reamer was inserted to open up the canal. Next based on intraoperative measurements, a 9 mm proximal nail was inserted from the greater trochanter into the shaft. Good reduction was noted. AP and lateral views were obtained to confirm the trajectory of the nail. Next, the cephalic guidewire was inserted to hold the reduction. This was in acceptable position. Next the screw was inserted based on measurements. 90 mm screw was inserted. Compression was achieved using the system. Excellent reduction was noted both in the AP and lateral views. A distal bicortical locking screw was now inserted. Excellent fixation was noted. Irrigation was given. The iliotibial band was closed with 2-0 Ethibond in the proximal incision. All the skin incisions were closed with 2-0 Vicryl and then hira were used. Sterile dressing was applied. Local anesthetic was injected. Traction was released in both legs and the patient was moved to the stretcher. Condition Fair Disposition Still a Patient TATIANA REDDY MD Aug 24, 2024 14:30
[2024-08-24] MEDS ORDERED: HYDROmorphone HCL 2 MG/ML VL/or syr IV PRN ×2 (16:15)
[2024-08-24] MEDS ORDERED: fentaNYL CITRATE 100 MCG/2 ML VL IV PRN (16:15)
[2024-08-24] MEDS ORDERED: MORPHINE SULFATE INJ 2 MG/ml SYRG IV PRN (16:15)
--- NOTE | 2024-08-24 16:23 | DVH ---
C-ARM FLUOROSCOPY: PROCEDURE: Left hip ORIF FLUOROSCOPY TIME: 68.6 seconds DAP: 4.82 mgy FINDINGS: Spot intraoperative C arm radiographs demonstrating left hip ORIF. IMPRESSION: Please refer to surgical report for detailed findings.
[2024-08-24] MEDS: NALOXONE HCL 0.4 MG/ML VIAL IV PRN (17:48)
[2024-08-24] MEDS: ACETAMINOPHEN IV 1000 MG/100ML (10MG/ML) IV ONE (18:26)
[2024-08-24] MEDS: ceFAZolin 2 GM/D5W100ml 100 ML IV ONE (18:41)
[2024-08-24] MEDS: METOCLOPRAMIDE HCL 5MG/ml INJ 2ml VIAL IV ONE (18:41)
[2024-08-24] MEDS: BUPIVACAINE HCL 50 ML ONE (18:41)
[2024-08-24] MEDS: ACETAMINOPHEN IV 100 ML IV ONE (18:42)
[2024-08-24] MEDS: NALOXONE HCL 0.4 MG/ML VIAL ONE (18:42)
[2024-08-24] MEDS: KETOROLAC TROMETH 30 MG/ML 1ML VIAL IV ONE (18:42)
[2024-08-25] VITALS (8 sets, daily range): BP systolic 101–138; BP diastolic 55–79; PULSE 67–109; RESP 12–20; TEMP 97.6–99.5; O2SAT 91–99
--- NOTE | 2024-08-25 07:46 | DVHPN2 ---
Progress Note - Dictate Date Seen: Aug 25, 2024 Medical Necessity Reason Pt with a Central, PICC or Fol: No Subjective Patient was lying comfortably in bed during my evaluation and reports some postoperative hip pain that is being well managed with the help of pain medication. Patient is otherwise feeling well denying any other complaints or concerns during my evaluation. I spoke with the patient's nurse who reports that the patient has not yet come up out of bed to walk with physical therapy. vital signs Vital Sign Date Time Temp Pulse Resp B/P (MAP) Pulse Ox O2 Delivery O2 Flow Rate FiO2 08/25/24 05:23 79 16 117/68 (84) 95 08/24/24 21:00 97.9 97.9 08/24/24 20:00 Nasal Cannula* 2 28 Total Intake and Output 08/24/24 08/24/24 08/25/24 15:00 23:00 07:00 Intake Total 0 ml 468 ml Output Total 250 ml Balance 0 ml 218 ml medications Current Medications Medications Dose Ordered Sig/Efrain Route Start Time Stop Time Status Last Admin Dose Admin Acetaminophen/ Hydrocodone Bitart 1 tab Q4HP PRN PO 08/23/24 00:45 Ondansetron HCl 4 mg Q4HP PRN IV 08/23/24 00:45 08/24/24 00:23 4 MG Acetaminophen 650 mg Q6HP PRN PO 08/23/24 00:45 Morphine Sulfate 2 mg Q4HPRN PRN IV 08/23/24 00:45 08/24/24 00:22 2 MG Haloperidol Lactate 2.5 mg Q4HP PRN IM 08/23/24 10:00 08/23/24 12:22 2.5 MG Sodium Chloride 1,000 ml @ 100 mls/hr Q10H IV 08/23/24 10:15 08/24/24 02:15 100 MLS/HR objective Alert to name Hip range of motion grossly limited with pain on movement Dressings clean, dry, and intact No distal edema or calf tenderness to palpation Neurovascularly intact with cap refill less than 2 seconds laboratory and microbiology Laboratory Tests 08/24/24 06:09 Test 08/24/24 06:09 Range/Units Serum Glucose 103 74-106 mg/dL Assessment/Plan Left intertrochanteric hip fracture Continue current management as well as pain control and advised to initiate physical therapy and for patient to remain weight-bearing as tolerated with the assistance of a walker given his issues with his balance that has been occurring for several years before this most recent injury making him unsteady while ambulating. Patient's son expressed his wishes to transfer patient to a custodial facility to obtain assistance with the acute phase of his rehabilitation phase given he needs help getting up and out of bed and to use the restroom and he does not have people at home to help him while he is working. Recommend patient be considered for transfer to a custodial facility. I instructed the patient to follow up with our office in 10-14 days for his 1st postoperative evaluation and to call our office if he has any questions or concerns. He understood and agreed. Plan discussed with: Patient ESTRADA QUICK Aug 25, 2024 07:46
--- NOTE | 2024-08-25 10:17 | ECG ---
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
--- NOTE | 2024-08-25 10:56 | DVHPN2 ---
Reviewed: Care Plan, H&P, Labs, Medications, Previous Orders, Radiology Changes from previous H/P or p: No Changes Objective Vitals Vital Signs Date Time Temp Pulse Resp B/P (MAP) Pulse Ox O2 Delivery O2 Flow Rate FiO2 08/25/24 09:04 99.3 99 19 138/79 (98) 99 99.3 08/24/24 20:00 Nasal Cannula* 2 28 Intake/Output Intake and Output 08/25/24 07:00 Intake Total 468 ml Output Total 250 ml Balance 218 ml Intake Oral 468 ml Output Urine Total 250 ml Medications Current Medications Medications Dose Ordered Sig/Efrain Route Start Time Stop Time Status Last Admin Dose Admin Acetaminophen/ Hydrocodone Bitart 1 tab Q4HP PRN PO 08/23/24 00:45 Ondansetron HCl 4 mg Q4HP PRN IV 08/23/24 00:45 08/24/24 00:23 4 MG Acetaminophen 650 mg Q6HP PRN PO 08/23/24 00:45 Morphine Sulfate 2 mg Q4HPRN PRN IV 08/23/24 00:45 08/24/24 00:22 2 MG Haloperidol Lactate 2.5 mg Q4HP PRN IM 08/23/24 10:00 08/23/24 12:22 2.5 MG Sodium Chloride 1,000 ml @ 100 mls/hr Q10H IV 08/23/24 10:15 08/24/24 02:15 100 MLS/HR Laboratory Results Laboratory Tests 08/24/24 06:09 Urinalysis Test 08/23/24 05:00 Urine Color Yellow (Yellow) Urine Clarity Turbid (Clear) H Urine pH 5.0 (5.0-9.0) Urine Specific [place] 1.028 (1.001-1.035) Urine Protein 1+ (Negative) H Urine Ketones Trace (Negative) Urine Blood Negative /uL (Negative) Urine Nitrite Negative (Negative) Urine Bilirubin Negative (Negative) Urine Urobilinogen 2 mg/dL (Negative) H Urine Leukocyte Esterase Negative /uL (Negative) Urine RBC 3 /hpf (0 - 3) Urine WBC 6 /hpf (0 - 3) Urine Squamous Epithelial Cells Few /hpf (<5) Urine Bacteria None seen /hpf (None Seen) Urine Hyaline Casts Few /lpf (0 - 2) Urine Glucose Normal mg/dL (Normal) Microbiology Microbiology Date/Time Source Procedure Growth Status 08/23/24 05:00 Urine - Midstream Clean Catch Urine Culture - Preliminary Resulted Labs and/or images reviewed: Labs reviewed by me, Image(s) reviewed by me Assessment/Plan Assessment/Plan Acute right intertrochanteric feature femur: Status post Left hip closed reduction with trochanteric nail by Dr Reddy on 08-24-24 Dementia : Namenda 10 mg p.o. b.i.d. Hypertension History of AFib: Resume home medicine Xarelto 20 mg p.o. daily Chronic anemia: Iron tablets DVT prophylaxis Xarelto GI prophylaxis: Pantoprazole Time spent 45 minutes Condition guarded Patient is full code Advanced care planning time 20 minutes Plan discussed with: Patient Date of Service: Aug 25, 2024 Billing Provider: ABBIE PALOMINO MD Common Visit Codes: [id number] INP/OBS CARE(HIGH) ABBIE PALOMINO MD Aug 25, 2024 10:56
[2024-08-25] MEDS: PANTOPRAZOLE 40 MG/10 ML VIAL INJ IV ONE (11:19)
[2024-08-25] MEDS: ASCORBIC ACID 500 MG TAB PO ONE (11:21)
[2024-08-25] MEDS: FERROUS SULFATE 325mg EC TAB PO SCH (17:12)
[2024-08-25] MEDS: RIVAROXABAN 15 MG TAB PO SCH (17:12)
[2024-08-25] MEDS: MEMANTINE HCL 5 MG TAB PO SCH (22:10)
[2024-08-26] VITALS (8 sets, daily range): BP systolic 97–120; BP diastolic 46–89; PULSE 60–118; RESP 17–18; TEMP 97.7–99.6; O2SAT 92–97
--- NOTE | 2024-08-26 09:56 | DVHPN2 ---
Reviewed: Care Plan, H&P, Labs, Medications, Previous Orders, Radiology Changes from previous H/P or p: No Changes Objective Vitals Vital Signs Date Time Temp Pulse Resp B/P (MAP) Pulse Ox O2 Delivery O2 Flow Rate FiO2 08/26/24 08:39 97.7 118 17 111/89 (96) 95 97.7 08/25/24 20:00 Room Air* 0 21 Intake/Output Intake and Output 08/26/24 07:00 Intake Total 1150 ml Output Total 1250 ml Balance -100 ml Intake Oral 1150 ml Output Urine Total 1250 ml # Voids 1 Medications Current Medications Medications Dose Ordered Sig/Efrain Route Start Time Stop Time Status Last Admin Dose Admin Acetaminophen/ Hydrocodone Bitart 1 tab Q4HP PRN PO 08/23/24 00:45 Ondansetron HCl 4 mg Q4HP PRN IV 08/23/24 00:45 08/24/24 00:23 4 MG Acetaminophen 650 mg Q6HP PRN PO 08/23/24 00:45 Morphine Sulfate 2 mg Q4HPRN PRN IV 08/23/24 00:45 08/24/24 00:22 2 MG Haloperidol Lactate 2.5 mg Q4HP PRN IM 08/23/24 10:00 08/25/24 23:43 2.5 MG Sodium Chloride 1,000 ml @ 100 mls/hr Q10H IV 08/23/24 10:15 08/25/24 22:15 100 MLS/HR Rivaroxaban 15 mg QPM PO 08/25/24 18:00 08/25/24 17:12 15 MG Ascorbic Acid 500 mg DAILY PO 08/26/24 10:00 Memantine 5 mg Q12HR PO 08/25/24 22:00 08/25/24 22:10 5 MG Ferrous Sulfate 325 mg BIDWM PO 08/25/24 18:00 08/25/24 17:12 325 MG Pantoprazole Sodium 40 mg DAILY IV 08/26/24 10:00 Laboratory Results Laboratory Tests 08/24/24 06:09 Urinalysis Test 08/23/24 05:00 Urine Color Yellow (Yellow) Urine Clarity Turbid (Clear) H Urine pH 5.0 (5.0-9.0) Urine Specific [place] 1.028 (1.001-1.035) Urine Protein 1+ (Negative) H Urine Ketones Trace (Negative) Urine Blood Negative /uL (Negative) Urine Nitrite Negative (Negative) Urine Bilirubin Negative (Negative) Urine Urobilinogen 2 mg/dL (Negative) H Urine Leukocyte Esterase Negative /uL (Negative) Urine RBC 3 /hpf (0 - 3) Urine WBC 6 /hpf (0 - 3) Urine Squamous Epithelial Cells Few /hpf (<5) Urine Bacteria None seen /hpf (None Seen) Urine Hyaline Casts Few /lpf (0 - 2) Urine Glucose Normal mg/dL (Normal) Microbiology Microbiology Date/Time Source Procedure Growth Status 08/23/24 05:00 Urine - Midstream Clean Catch Urine Culture - Final Complete Labs and/or images reviewed: Labs reviewed by me, Image(s) reviewed by me Assessment/Plan Assessment/Plan Acute right intertrochanteric feature femur: Status post Left hip closed reduction with trochanteric nail by Dr Reddy on 08-24-24 Dementia : Namenda 10 mg p.o. b.i.d. Hypertension History of AFib: Resume home medicine Xarelto 20 mg p.o. daily Chronic anemia: Iron tablets DVT prophylaxis Xarelto GI prophylaxis: Pantoprazole Time spent 45 minutes Condition guarded Patient is full code Advanced care planning time 20 minutes Patient has power of upper marker son Tahir [phone]; his daughter Khushboo [phone] at bedside Other granddaughter Valorie [phone] also at bedside Requesting correction facility placement for rehab Plan discussed with: Patient My Orders Orders - ABBIE PALOMINO MD Procedure Category Date Status Time Ascorbic Acid Tablet PHA 08/26/24 In Process (Vitamin C Tablet) 10:00 Memantine Tablet PHA 08/25/24 In Process (Namenda Tablet) 22:00 Ferrous Sulfate Tablet PHA 08/25/24 In Process 18:00 Pt Request For Service PT 08/25/24 Logged 10:54 Pantoprazole PHA 08/26/24 In Process (Protonix) 10:00 Cardiac DIET 08/25/24 Transmitted Diet-2gna,Lofat,Lochol Lunch Rivaroxaban Tablet PHA 08/25/24 In Process (Xarelto Tablet) 18:00 Communication Order ORDERS 08/25/24 Transmitted 11:27 Date of Service: Aug 26, 2024 Billing Provider: ABBIE PALOMINO MD Common Visit Codes: [id number] INP/OBS CARE(HIGH) ABBIE PALOMINO MD Aug 26, 2024 09:56
[2024-08-26] MEDS: PANTOPRAZOLE 40 MG/10 ML VIAL INJ IV SCH (10:27)
[2024-08-26] MEDS: ASCORBIC ACID 500 MG TAB PO SCH (10:28)
[2024-08-26 13:49] LABS: COVID19 ANTIGEN SOFIA FIA NEGATIVE (NEGATIVE)
[2024-08-26] MEDS: LACTULOSE 20Gm/30ML SOLN PO ONE (13:59)
[2024-08-27] VITALS (8 sets, daily range): BP systolic 107–133; BP diastolic 57–70; PULSE 54–98; RESP 16–19; TEMP 98.1–100; O2SAT 94–98
[2024-08-27 06:46] LABS: Basophils # (auto) 0 10 ^3/uL (0-0.2); Basophils % (auto) 0.1 % (0.0-2.0); Eosinophils # (auto) 0.1 10 ^3/uL (0-0.8); Lymphocytes # (auto) 1.2 10 ^3/uL (0.4-5.4)
[2024-08-27 06:48] LABS: Eosinophils % (auto) 1.4 % (0.0-7.0); Hematocrit 23.5 % (41.0-53.0); Hemoglobin 8.1 g/dL (13.5-17.5); Lymphocytes % (auto) 15.3 % (10.0-50.0); Mean Corpuscular Hemoglobin 35.3 pg (28.0-32.0); Mean Corpuscular Hgb Conc. 34.4 g/dL (32.0-36.0); Mean Corpuscular Volume 102.7 fL (80.0-100.0); Monocytes # (auto) 0.8 10 ^3/uL (0-1.3); Monocytes % (auto) 9.8 % (0.0-12.0); Neutrophils # (auto) 5.8 10 ^3/uL (1.6-8.6); Neutrophils % (auto) 73.4 % (37.0-80.0); Nucleated Red Blood Cells % 0.1 %; Platelet Count (auto) 153 10^3/uL (140-450); Red Blood Cells 2.28 10^6/uL (4.5-5.90); Red Cell Distribution Width 14.2 % (11.8-14.3); White Blood Cell 7.9 10^3/uL (4.4-10.8)
[2024-08-27 06:58] LABS: Anion Gap 8 (5-15); Carbon Dioxide 22 mmol/L (20-31); Chloride 109 mmol/L (98-107); Potassium 3.8 mmol/L (3.5-5.1); Sodium 139 mmol/L (136-145)
[2024-08-27 07:00] LABS: Calcium 7.7 mg/dL (8.7-10.4)
[2024-08-27 07:04] LABS: BUN/Creatinine Ratio 22.6 (10.0-20.0); Blood Urea Nitrogen 19 mg/dL (9-23); Glucose 95 mg/dL (74-106)
--- NOTE | 2024-08-27 10:48 | DVHPN2 ---
Reviewed: Care Plan, H&P, Labs, Medications, Previous Orders, Radiology Changes from previous H/P or p: No Changes Objective Vitals Vital Signs Date Time Temp Pulse Resp B/P (MAP) Pulse Ox O2 Delivery O2 Flow Rate FiO2 08/27/24 09:00 98.9 87 16 132/57 (82) 94 98.9 08/26/24 20:00 Room Air* 0 21 Intake/Output Intake and Output 08/27/24 07:00 Intake Total 3840 ml Output Total 1250 ml Balance 2590 ml Intake Oral 1440 ml IV Total 2400 ml Output Urine Total 1250 ml # Voids 9 Medications Current Medications Medications Dose Ordered Sig/Efrain Route Start Time Stop Time Status Last Admin Dose Admin Acetaminophen/ Hydrocodone Bitart 1 tab Q4HP PRN PO 08/23/24 00:45 Ondansetron HCl 4 mg Q4HP PRN IV 08/23/24 00:45 08/24/24 00:23 4 MG Acetaminophen 650 mg Q6HP PRN PO 08/23/24 00:45 Morphine Sulfate 2 mg Q4HPRN PRN IV 08/23/24 00:45 08/26/24 10:28 2 MG Haloperidol Lactate 2.5 mg Q4HP PRN IM 08/23/24 10:00 08/25/24 23:43 2.5 MG Sodium Chloride 1,000 ml @ 100 mls/hr Q10H IV 08/23/24 10:15 08/27/24 01:53 100 MLS/HR Rivaroxaban 15 mg QPM PO 08/25/24 18:00 08/26/24 17:04 15 MG Ascorbic Acid 500 mg DAILY PO 08/26/24 10:00 08/27/24 09:13 500 MG Memantine 5 mg Q12HR PO 08/25/24 22:00 08/27/24 09:13 5 MG Ferrous Sulfate 325 mg BIDWM PO 08/25/24 18:00 08/27/24 09:13 325 MG Pantoprazole Sodium 40 mg DAILY IV 08/26/24 10:00 08/27/24 09:13 40 MG Laboratory Results Laboratory Tests 08/27/24 06:15 Chemistry Test 08/27/24 06:15 Calcium Level 7.7 mg/dL (8.7-10.4) L Urinalysis Test 08/23/24 05:00 Urine Color Yellow (Yellow) Urine Clarity Turbid (Clear) H Urine pH 5.0 (5.0-9.0) Urine Specific [place] 1.028 (1.001-1.035) Urine Protein 1+ (Negative) H Urine Ketones Trace (Negative) Urine Blood Negative /uL (Negative) Urine Nitrite Negative (Negative) Urine Bilirubin Negative (Negative) Urine Urobilinogen 2 mg/dL (Negative) H Urine Leukocyte Esterase Negative /uL (Negative) Urine RBC 3 /hpf (0 - 3) Urine WBC 6 /hpf (0 - 3) Urine Squamous Epithelial Cells Few /hpf (<5) Urine Bacteria None seen /hpf (None Seen) Urine Hyaline Casts Few /lpf (0 - 2) Urine Glucose Normal mg/dL (Normal) Microbiology Microbiology Date/Time Source Procedure Growth Status 08/23/24 05:00 Urine - Midstream Clean Catch Urine Culture - Final Complete Labs and/or images reviewed: Labs reviewed by me, Image(s) reviewed by me Assessment/Plan Assessment/Plan Acute left intertrochanteric fracture femur Status post Left hip closed reduction with trochanteric nail by Dr Reddy on 08-24-24 Dementia : Namenda 10 mg p.o. b.i.d. Hypertension History of AFib: Resume home medicine Xarelto 20 mg p.o. daily Chronic anemia: Iron tablets DVT prophylaxis Xarelto GI prophylaxis: Pantoprazole Stage III pressure ulcer right heel present on admission Time spent 45 minutes Condition guarded Patient is full code Advanced care planning time 20 minutes Patient has power of assistant district attorney son Tahir [phone]; his daughter Khushboo [phone] at bedside Other granddaughter Valorie [phone] also at bedside Requesting assisted facility placement for rehab Plan discussed with: Patient My Orders Orders - ABBIE PALOMINO MD Procedure Category Date Status Time * Wound Consult CONS 08/26/24 Transmitted Date of Service: Aug 27, 2024 Billing Provider: ABBIE PALOMINO MD Common Visit Codes: [id number] INP/OBS CARE(HIGH) ABBIE PALOMINO MD Aug 27, 2024 10:48
--- NOTE | 2024-08-27 11:01 | DVHDS2 ---
Discharge Summary Date of Admission Aug 23, 2024 at 00:44 Date of Discharge: Aug 27, 2024 Admitting Diagnosis Fracture left hip status post mechanical fall Wounds: Left hip fracture Labs/Diagnostic Data: Laboratory Results Test 08/27/24 06:15 08/26/24 13:00 08/24/24 17:27 08/24/24 06:09 White Blood Count 7.9 10^3/uL (4.4-10.8) Red Blood Count 2.28 10^6/uL (4.5-5.90) Hemoglobin 8.1 g/dL (13.5-17.5) Hematocrit 23.5 % (41.0-53.0) Mean Corpuscular Volume 102.7 fL (80.0-100.0) Mean Corpuscular Hemoglobin 35.3 pg (28.0-32.0) Mean Corpuscular Hemoglobin Concent 34.4 g/dL (32.0-36.0) Red Cell Distribution Width 14.2 % (11.8-14.3) Platelet Count 153 10^3/uL (140-450) Mean Platelet Volume 6.8 fL (6.9-10.8) Neutrophils (%) (Auto) 73.4 % (37.0-80.0) Lymphocytes (%) (Auto) 15.3 % (10.0-50.0) Monocytes (%) (Auto) 9.8 % (0.0-12.0) Eosinophils (%) (Auto) 1.4 % (0.0-7.0) Basophils (%) (Auto) 0.1 % (0.0-2.0) Neutrophils # (Auto) 5.8 10 ^3/uL (1.6-8.6) Lymphocytes # (Auto) 1.2 10 ^3/uL (0.4-5.4) Monocytes # (Auto) 0.8 10 ^3/uL (0-1.3) Eosinophils # (Auto) 0.1 10 ^3/uL (0-0.8) Basophils # (Auto) 0 10 ^3/uL (0-0.2) Nucleated Red Blood Cells 0.1 % Sodium Level 139 mmol/L (136-145) Potassium Level 3.8 mmol/L (3.5-5.1) Chloride Level 109 mmol/L (98-107) Carbon Dioxide Level 22 mmol/L (20-31) Anion Gap 8 (5-15) Blood Urea Nitrogen 19 mg/dL (9-23) Creatinine 0.84 mg/dL (0.700-1.30) Glomerular Filtration Rate Calc 83 mL/min (>90) BUN/Creatinine Ratio 22.6 (10.0-20.0) Serum Glucose 95 mg/dL (74-106) Calcium Level 7.7 mg/dL (8.7-10.4) SARS-CoV-2 Antigen (Rapid) Negative (NEGATIVE) POC Glucose 107 mg/dl (70-106) Total Bilirubin 1.0 mg/dL (0.2-1.0) Aspartate Amino Transferase (AST) 41 U/L (13-40) Alanine Aminotransferase (ALT) 16 U/L (7-40) Alkaline Phosphatase 80 U/L (46-116) Total Protein 5.6 g/dL (5.7-8.2) Albumin 3.1 g/dL (3.2-4.8) Test 08/24/24 06:06 08/23/24 09:36 08/23/24 05:00 Hemoglobin A1c 5.8 % A1C (<5.7) Magnesium Level 2.2 mg/dL (1.6-2.6) B-Type Natriuretic Peptide 32.42 pg/mL (0-100) Triglycerides Level 92 mg/dL (< 150) Cholesterol Level 97 mg/dL (< 200) LDL Cholesterol 42 mg/dL (< 100) HDL Cholesterol 37 mg/dL (40-59) Thyroid Stimulating Hormone (TSH) 11.35 uIU/mL (0.55-4.78) Prothrombin Time 13.3 sec (9.3-11.8) Prothrombin Time INR 1.28 (0.9-1.15) Activated Partial Thromboplast Time 33.3 SEC (24.5-34.5) Urine Color Yellow (Yellow) Urine Clarity Turbid (Clear) Urine pH 5.0 (5.0-9.0) Urine Specific [place] 1.028 (1.001-1.035) Urine Protein 1+ (Negative) Urine Ketones Trace (Negative) Urine Blood Negative /uL (Negative) Urine Nitrite Negative (Negative) Urine Bilirubin Negative (Negative) Urine Urobilinogen 2 mg/dL (Negative) Urine Leukocyte Esterase Negative /uL (Negative) Urine RBC 3 /hpf (0 - 3) Urine WBC 6 /hpf (0 - 3) Urine Squamous Epithelial Cells Few /hpf (<5) Urine Bacteria None seen /hpf (None Seen) Urine Hyaline Casts Few /lpf (0 - 2) Urine Glucose Normal mg/dL (Normal) Other Laboratory Tests 08/27/24 06:15 Brief Hx & Hospital Course: 88-year-old male had a mechanical fall sustained left hip fracture and underwent closed reduction with trochanteric nail by on 08/24/2024 patient also has dementia on Namenda. History of hypertension AFib for which he is on Xarelto he takes iron tablets for chronic anemia he also has stage III decubitus ulcer in the right heel present on admission. Per family patient is being discharged to senior care facility for physical therapy pain management and rehab. physical therapy recommended senior care facility placement Consults/Reason for consult Orthopedic Dr Reddy Operations or Procedures Closed reduction and intertrochanteric nail Condition at Discharge: Fair Final Diagnosis/Problems List Acute left intertrochanteric fracture femur Status post Left hip closed reduction with trochanteric nail by Dr Reddy on 08-24-24 Dementia : Namenda 10 mg p.o. b.i.d. Hypertension History of AFib: Resume home medicine Xarelto 20 mg p.o. daily Chronic anemia: Iron tablets DVT prophylaxis Xarelto GI prophylaxis: Pantoprazole Stage III pressure ulcer right heel present on admission Discharge Disposition: Correction Facility Discharge Instruct/Medications Diet: Cardiac 2g Na,low cholest Activity: Light activity Follow Up/Referral: Follow up with the usp Dr Follow up with the orthopedic Dr Reddy in two weeks Medications: See list 39 (Time Taken for discharge summary 39 minutes) Discharge Statement: "Patient was advised to return to the ER or call 911 if any headaches, dizziness, shortness of breath, chest pain, abdominal pain, bleeding, fevers, or worsening of medical condition. Patient was counseled about treatment plan, medications, possible side effects, patientverbalized understanding. All questions were answered to the best of my ability. This discharge took greater then 30 minutes in planning, reviewing documentation, counseling the patient, and discussing with other team members." ASSESSMENT ASSESSMENT Hospital Course Uneventful Assessment Acute left intertrochanteric fracture femur Status post Left hip closed reduction with trochanteric nail by Dr Reddy on 08-24-24 Dementia : Namenda 10 mg p.o. b.i.d. Hypertension History of AFib: Resume home medicine Xarelto 20 mg p.o. daily Chronic anemia: Iron tablets DVT prophylaxis Xarelto GI prophylaxis: Pantoprazole Stage III pressure ulcer right heel present on admission Date of Service: Aug 27, 2024 Billing Provider: ABBIE PALOMINO MD Common Visit Codes: [id number] DISCH DAY >30min ABBIE PALOMINO MD Aug 27, 2024 11:01
[2024-08-27] MEDS: ACETAMINOPHEN 325 MG TAB PO PRN (19:25)
[2024-08-27] MEDS: MEMANTINE HCL 5 MG TAB PO SCH (21:31)
[2024-08-28] VITALS (8 sets, daily range): BP systolic 110–139; BP diastolic 57–75; PULSE 83–92; RESP 16–17; TEMP 97.4–99.1; O2SAT 91–98
--- NOTE | 2024-08-28 09:57 | DVHPN2 ---
Reviewed: Care Plan, H&P, Labs, Medications, Previous Orders, Radiology Changes from previous H/P or p: No Changes Objective Vitals Vital Signs Date Time Temp Pulse Resp B/P (MAP) Pulse Ox O2 Delivery O2 Flow Rate FiO2 08/28/24 08:44 98.7 92 17 139/75 (96) 91 98.7 08/28/24 07:58 Room Air* 0 21 Intake/Output Intake and Output 08/28/24 07:00 Intake Total 2360 ml Balance 2360 ml Intake Oral 860 ml IV Total 1500 ml # Voids 15 Medications Current Medications Medications Dose Ordered Sig/Efrain Route Start Time Stop Time Status Last Admin Dose Admin Acetaminophen/ Hydrocodone Bitart 1 tab Q4HP PRN PO 08/23/24 00:45 Ondansetron HCl 4 mg Q4HP PRN IV 08/23/24 00:45 08/24/24 00:23 4 MG Acetaminophen 650 mg Q6HP PRN PO 08/23/24 00:45 08/27/24 19:25 650 MG Morphine Sulfate 2 mg Q4HPRN PRN IV 08/23/24 00:45 08/26/24 10:28 2 MG Haloperidol Lactate 2.5 mg Q4HP PRN IM 08/23/24 10:00 08/25/24 23:43 2.5 MG Sodium Chloride 1,000 ml @ 100 mls/hr Q10H IV 08/23/24 10:15 08/28/24 00:54 100 MLS/HR Rivaroxaban 15 mg QPM PO 08/25/24 18:00 08/26/24 17:04 15 MG Ascorbic Acid 500 mg DAILY PO 08/26/24 10:00 08/27/24 09:13 500 MG Ferrous Sulfate 325 mg BIDWM PO 08/25/24 18:00 08/28/24 07:58 325 MG Pantoprazole Sodium 40 mg DAILY IV 08/26/24 10:00 08/27/24 09:13 40 MG Memantine 10 mg Q12HR PO 08/27/24 22:00 08/27/24 21:31 10 MG Laboratory Results Laboratory Tests 08/27/24 06:15 Urinalysis Test 08/23/24 05:00 Urine Color Yellow (Yellow) Urine Clarity Turbid (Clear) H Urine pH 5.0 (5.0-9.0) Urine Specific [place] 1.028 (1.001-1.035) Urine Protein 1+ (Negative) H Urine Ketones Trace (Negative) Urine Blood Negative /uL (Negative) Urine Nitrite Negative (Negative) Urine Bilirubin Negative (Negative) Urine Urobilinogen 2 mg/dL (Negative) H Urine Leukocyte Esterase Negative /uL (Negative) Urine RBC 3 /hpf (0 - 3) Urine WBC 6 /hpf (0 - 3) Urine Squamous Epithelial Cells Few /hpf (<5) Urine Bacteria None seen /hpf (None Seen) Urine Hyaline Casts Few /lpf (0 - 2) Urine Glucose Normal mg/dL (Normal) Microbiology Microbiology Date/Time Source Procedure Growth Status 08/23/24 05:00 Urine - Midstream Clean Catch Urine Culture - Final Complete Labs and/or images reviewed: Labs reviewed by me, Image(s) reviewed by me Assessment/Plan Assessment/Plan Acute left intertrochanteric fracture femur Status post Left hip closed reduction with trochanteric nail by Dr Reddy on 08-24-24 Dementia : Namenda 10 mg p.o. b.i.d. Hypertension History of AFib: Resume home medicine Xarelto 20 mg p.o. daily Chronic anemia: Iron tablets DVT prophylaxis Xarelto GI prophylaxis: Pantoprazole Stage III pressure ulcer right heel present on admission Time spent 45 minutes Condition guarded Patient is full code Advanced care planning time 20 minutes Patient has power of attorney general son Tahir [phone]; his daughter Khushboo [phone] at bedside Other granddaughter Valorie [phone] also at bedside Patient awaiting transportation to the group home Plan discussed with: Patient My Orders Orders - ABBIE PALOMINO MD Procedure Category Date Status Time Discharge DISCHARGE 08/27/24 Transmitted 10:48 * Helpdesk Technician CONS 08/27/24 Transmitted Consult D/C Sitter ORDERS 08/27/24 Transmitted 12:27 Memantine Tablet PHA 08/27/24 In Process (Namenda Tablet) 22:00 * Dietary Consult CONS 08/27/24 Transmitted 10:20 Cover Wound With Dry EREN 08/27/24 In Process Dressing 10:20 Date of Service: Aug 28, 2024 Billing Provider: ABBIE PALOMINO MD Common Visit Codes: [id number] INP/OBS CARE(HIGH) ABBIE PALOMINO MD Aug 28, 2024 09:57
[2024-08-28] MEDS: HYDROcodone-ACET 5/325MG TAB PO PRN (15:57)
[2024-08-29 05:00] VITALS: BP 127/70; PULSE 90; RESP 18; TEMP 98; O2SAT 94
[2024-08-29 07:30] VITALS: PULSE 87; RESP 17; O2SAT 93
[2024-08-29 08:22] VITALS: BP 128/67; PULSE 87; RESP 17; TEMP 98.3; O2SAT 93
--- NOTE | 2024-08-29 10:30 | DVHPN2 ---
Reviewed: Care Plan, H&P, Labs, Medications, Previous Orders, Radiology Changes from previous H/P or p: No Changes Objective Vitals Vital Signs Date Time Temp Pulse Resp B/P (MAP) Pulse Ox O2 Delivery O2 Flow Rate FiO2 08/29/24 08:22 98.3 87 17 128/67 (87) 93 98.3 08/29/24 07:30 Room Air* 0 21 Intake/Output Intake and Output 08/29/24 07:00 Intake Total 1320 ml Output Total 150 ml Balance 1170 ml Intake Oral 1320 ml Output Urine Total 150 ml # Voids 18 Medications Current Medications Medications Dose Ordered Sig/Efrain Route Start Time Stop Time Status Last Admin Dose Admin Acetaminophen/ Hydrocodone Bitart 1 tab Q4HP PRN PO 08/23/24 00:45 08/28/24 15:57 1 TAB Ondansetron HCl 4 mg Q4HP PRN IV 08/23/24 00:45 08/24/24 00:23 4 MG Acetaminophen 650 mg Q6HP PRN PO 08/23/24 00:45 08/27/24 19:25 650 MG Morphine Sulfate 2 mg Q4HPRN PRN IV 08/23/24 00:45 08/29/24 00:27 2 MG Haloperidol Lactate 2.5 mg Q4HP PRN IM 08/23/24 10:00 08/25/24 23:43 2.5 MG Sodium Chloride 1,000 ml @ 100 mls/hr Q10H IV 08/23/24 10:15 08/29/24 06:12 100 MLS/HR Rivaroxaban 15 mg QPM PO 08/25/24 18:00 08/28/24 17:18 15 MG Ascorbic Acid 500 mg DAILY PO 08/26/24 10:00 08/29/24 09:16 500 MG Ferrous Sulfate 325 mg BIDWM PO 08/25/24 18:00 08/29/24 07:28 325 MG Pantoprazole Sodium 40 mg DAILY IV 08/26/24 10:00 08/29/24 09:16 40 MG Memantine 10 mg Q12HR PO 08/27/24 22:00 08/29/24 09:16 10 MG Laboratory Results Laboratory Tests 08/27/24 06:15 Urinalysis Test 08/23/24 05:00 Urine Color Yellow (Yellow) Urine Clarity Turbid (Clear) H Urine pH 5.0 (5.0-9.0) Urine Specific [place] 1.028 (1.001-1.035) Urine Protein 1+ (Negative) H Urine Ketones Trace (Negative) Urine Blood Negative /uL (Negative) Urine Nitrite Negative (Negative) Urine Bilirubin Negative (Negative) Urine Urobilinogen 2 mg/dL (Negative) H Urine Leukocyte Esterase Negative /uL (Negative) Urine RBC 3 /hpf (0 - 3) Urine WBC 6 /hpf (0 - 3) Urine Squamous Epithelial Cells Few /hpf (<5) Urine Bacteria None seen /hpf (None Seen) Urine Hyaline Casts Few /lpf (0 - 2) Urine Glucose Normal mg/dL (Normal) Microbiology Microbiology Date/Time Source Procedure Growth Status 08/23/24 05:00 Urine - Midstream Clean Catch Urine Culture - Final Complete Assessment/Plan Assessment/Plan Acute left intertrochanteric fracture femur Status post Left hip closed reduction with trochanteric nail by Dr Reddy on 08-24-24 Dementia : Namenda 10 mg p.o. b.i.d. Hypertension History of AFib: Resume home medicine Xarelto 20 mg p.o. daily Chronic anemia: Iron tablets DVT prophylaxis Xarelto GI prophylaxis: Pantoprazole Stage III pressure ulcer right heel present on admission Time spent 45 minutes Condition guarded Patient is full code Advanced care planning time 20 minutes Patient has power of channel cementer outsole machine son Tahir [phone]; his daughter Khushboo [phone] at bedside Other granddaughter Valorie [phone] also at bedside Patient awaiting transportation to the shelter Plan discussed with: Patient My Orders Orders - ABBIE PALOMINO MD Procedure Category Date Status Time Dietary NOTICE 08/28/24 Transmitted Recommendations 13:17 Date of Service: Aug 29, 2024 Billing Provider: ABBIE PALOMINO MD Common Visit Codes: [id number] INP/OBS CARE(HIGH) ABBIE PALOMINO MD Aug 29, 2024 10:30
[2024-08-29 12:35] VITALS: BP 125/75; PULSE 94; RESP 17; TEMP 98; O2SAT 94
[2024-08-29 13:28] VITALS: BP 125/77; PULSE 94; RESP 17; TEMP 98; O2SAT 94
== END 2024-08-29 15:44 | DRG 480 ==
LOC: ER 21:53 → EDBD 21:53 → OVERFLOW 08-23 00:44 → EAST 08-24 11:20
PROVIDERS: ADMIT Nurse Practitioner; ATTEND Family Medicine
PROC: 0QS734Z Reposition Left Upper Femur with Internal Fixation Device, Percutaneous Approach (ICD-10-PCS; principal; 2024-08-24 14:22)
DX: S72.142A Displaced intertrochanteric fracture of left femur, initial encounter for closed fracture (principal); L89.613 Pressure ulcer of right heel, stage 3; I50.32 Chronic diastolic (congestive) heart failure; N17.9 Acute kidney failure, unspecified; I13.0 Hypertensive heart and chronic kidney disease with heart failure and stage 1 through stage 4 chronic kidney disease, or unspecified chronic kidney disease; N18.9 Chronic kidney disease, unspecified; F03.90 Unspecified dementia, unspecified severity, without behavioral disturbance, psychotic disturbance, mood disturbance, and anxiety; I45.10 Unspecified right bundle-branch block; I48.0 Paroxysmal atrial fibrillation; D64.9 Anemia, unspecified; Z79.899 Other long term (current) drug therapy; S50.01XA Contusion of right elbow, initial encounter; Z79.01 Long term (current) use of anticoagulants; W06.XXXA Fall from bed, initial encounter; Y93.89 Activity, other specified; Y92.89 Other specified places as the place of occurrence of the external cause; Y99.8 Other external cause status
CPT/HCPCS: 36415; 70450; 71045; 72192; 73070; 73501; 76000; 80048; 80053; 80061; 81001; 82962; 83036; 83735; 83880; 84443; 85025; 85610; 85730; 86850; 86900; 86901; 87086; 87426; 93005; 93306; 97110; 97116; 97163; 97530; C1713; G0378; J0131; J1100; J2250; J2405; J2470; J2704; J3490

== ENCOUNTER 2024-11-14 13:36 | Inpatient (IN) | payer MEDICARE, MEDICAID ==
[~2024-11-14] VITALS: Ht 165.1 cm; Wt 54.8 kg
--- NOTE | 2024-11-14 14:10 | ED.PDOC ---
SOB-HPI HPI Comments 88 year old male YEIMY presents to the ED with chief complaint of SOB/ALOC. EMS reports patient was at home noted to be more confused than usual and having SOB. EMS relays that on scene, the patient's O2 saturation was noted to be in the low 80s and when placed on a non-rebreather mask, it only went up to 87%,. Patient denies any chest pain, fever, chills, or cough. Chief Complaint: ALOC Time Seen by MD: 14:07 Reviewed notes: Nurses Notes, Medications, Allergies Information Source: Patient, Emergency Med Personnel Mode of Arrival: EMS Severity: Moderate Timing: Hours Duration: Since onset Context: At Rest PE Risk Factors: None Prehospital treatment: Oxygen Modifying Factors: Nothing Associated Signs and Symptoms: None Past Medical History PAST MEDICAL HISTORY: AFIB, Dementia Surgical History: Unknown, Unobtainable Family History Family History: Unknown, Unobtainable Social History Smoker: Unknown, Unobtainable Alcohol: Unknown, Unobtainable Drugs: Unknown, Unobtainable Lives In: Home, Assisted Care Constitutional: denies: chills, diaphoresis, fatigue, fever, malaise, sweats, weakness, others EENTM: denies: blurred vision, double vision, ear bleeding, ear discharge, ear drainage, ear pain, ear ringing, eye pain, eye redness, hearing loss, mouth pain, mouth swelling, nasal discharge, nose bleeding, nose congestion, nose pain, photophobia, tearing, throat pain, throat swelling, voice changes, others Respiratory: reports: shortness of breath; denies: cough, hemoptysis, orthopnea, SOB at rest, SOB with excertion, stridor, wheezing, others Cardiovascular: denies: chest pain, dizzy spells, diaphoresis, Dyspnea on exertion, edema, irregular heart beat, left arm pain, lightheadedness, palpitations, PND, syncope, others Gastrointestinal: denies: abdomen distended, abdominal pain, blood streaked bowels, constipated, diarrhea, dysphagia, difficulty swallowing, hematemesis, melena, nausea, poor appetite, poor fluid intake, rectal bleeding, rectal pain, vomiting, others Genitourinary: denies: burning, dysuria, flank pain, frequency, hematuria, incontinence, penile discharge, penile sore, pain, testicle pain, testicle swelling, urgency, others Neurological: denies: dizziness, fainting, headache, left sided numbness, left sided weakness, numbness, paresthesia, pre-existing deficit, right sided numbness, right sided weakness, seizure, speech problems, tingling, tremors, weakness, others Musculoskeletal: denies: back pain, gout, joint pain, joint swelling, muscle pa in, muscle stiffness, neck pain, others Integumetry: denies: bruises, change in color, change in hair/nails, dryness, laceration, lesions, lumps, rash, wounds, others Allergic/Immunocompromised: denies: Difficulty Healing, Frequent Infections, Hives, Itching, others Hematologic/Lymphatic: denies: anemia, blood clots, easy bleeding, easy bruising, swollen glands, others Endocrine: denies: excessive hunger, excessive sweating, excessive thirst, excessive urination, flushing, intolerance to cold, intolerance to heat, unexplained weight gain, unexplained weight loss, others Psychiatric: denies: anxiety, bipolar disorder, depression, hopeless, panic disorder, schizophrenia, sleepless, suicidal, others All Other Systems: Reviewed and Negative Physical Exam General Appearance: No Apparent Distress, Other (Chronically ill-appearing) HEENT: Normal ENT Inspection, PERRL/EOMI, Pharynx Normal, TMs Normal Neck: Full Range of Motion, Non-Tender, Normal, Normal Inspection Respiratory: Chest Non-Tender, Lungs Clear, No Accessory Muscle Use, No Resp iratory Distress, Normal Breath Sounds Cardiovascular: No Edema, No JVD, No Murmur, No Gallop, Normal Peripheral Pulses, Regular Rate/Rhythm Breast Exam: Deferred Gastrointestinal: No Organomegaly, Non Tender, No Pulsatile Mass, Normal Bowel Sounds, Soft Genitalia: Deferred Pelvic: Deferred Rectal: Deferred Extremities: No calf tenderness, Normal capillary refill, Normal inspection, Normal range of motion, Non-tender, No pedal edema Musculoskeletal : Apperance: Normal Neurologic: Alert, project consultant II-XII nml as Tested, No Motor Deficits, Normal Affect, Normal Mood, No Sensory Deficits Cerebellar Function: Normal Reflexes: Normal Skin: Dry, Normal Color, Warm Lymphatic: No Adenopathy Was a procedure done? Was a procedure done?: No Differential Dx Differential Diagnosis: Asthma, COPD, Pneumonia, URI X-Ray, Labs, Meds, VS Vital Signs Date Time Temp Pulse Resp B/P (MAP) Pulse Ox O2 Delivery O2 Flow Rate FiO2 11/14/24 16:00 93 16 99 Nasal Cannula* 2 28 11/14/24 16:00 97.6 93 18 102/42 (62) 98 97.6 11/14/24 15:50 90 20 103/47 (65) 100 11/14/24 15:30 93 18 93/52 (66) 98 11/14/24 15:00 95 18 104/59 (74) 98 11/14/24 14:30 99 18 96/59 (71) 98 11/14/24 14:15 98 18 105/58 (74) 98 11/14/24 14:00 97.7 100 18 95/43 (60) 98 97.7 11/14/24 13:40 97.3 95 14 107/49 (68) 99 Lab Test 11/14/24 16:11 11/14/24 16:05 11/14/24 15:36 11/14/24 14:30 Range/Units POC Glucose 101 70-106 mg/dl Urine Color Yellow Yellow Urine Clarity Clear Clear Urine pH 5.5 5.0-9.0 Urine Specific [place] 1.016 1.001-1.035 Urine Protein 1+ H Negative Urine Ketones Negative Negative Urine Blood Negative Negative /uL Urine Nitrite Negative Negative Urine Bilirubin Negative Negative Urine Urobilinogen Normal Negative mg/dL Urine Leukocyte Esterase Trace Negative /uL Urine RBC 1 0 - 3 /hpf Urine Microscopic WBC 5 H 0-3 /HPF Urine Squamous Epithelial Cells Few <5 /hpf Urine Bacteria None seen None Seen /hpf Urine Hyaline Casts Few 0 - 2 /lpf Urine Yeast (Budding) Occasional None Seen /hpf Urine Glucose Normal Normal mg/dL Troponin I High Sensitivity 28 28 </=54 ng/L White Blood Count 8.4 4.4-10.8 10^3/uL Red Blood Count 3.20 L 4.5-5.90 10^6/uL Hemoglobin 9.6 L 13.5-17.5 g/dL Hematocrit 30.1 L 41.0-53.0 % Mean Corpuscular Volume 94.2 80.0-100.0 fL Mean Corpuscular Hemoglobin 30.0 28.0-32.0 pg Mean Corpuscular Hemoglobin Concent 31.8 L 32.0-36.0 g/dL Red Cell Distribution Width 16.6 H 11.8-14.3 % Platelet Count 162 140-450 10^3/uL Mean Platelet Volume 7.1 6.9-10.8 fL Neutrophils (%) (Auto) 85.2 H 37.0-80.0 % Lymphocytes (%) (Auto) 8.1 L 10.0-50.0 % Monocytes (%) (Auto) 6.3 0.0-12.0 % Eosinophils (%) (Auto) 0.1 0.0-7.0 % Basophils (%) (Auto) 0.3 0.0-2.0 % Neutrophils # (Auto) 7.2 1.6-8.6 10 ^3/uL Lymphocytes # (Auto) 0.7 0.4-5.4 10 ^3/uL Monocytes # (Auto) 0.5 0-1.3 10 ^3/uL Eosinophils # (Auto) 0 0-0.8 10 ^3/uL Basophils # (Auto) 0 0-0.2 10 ^3/uL Nucleated Red Blood Cells 0.1 % Sodium Level 150 H 136-145 mmol/L Potassium Level 2.5 *L 3.5-5.1 mmol/L Chloride Level 119 H 98-107 mmol/L Carbon Dioxide Level 17 L 20-31 mmol/L Anion Gap 14 5-15 Blood Urea Nitrogen 25 H 9-23 mg/dL Creatinine 1.43 H 0.700-1.30 mg/dL Glomerular Filtration Rate Calc 47 >90 mL/min BUN/Creatinine Ratio 17.5 10.0-20.0 Serum Glucose 124 H 74-106 mg/dL Lactic Acid Level Pending Calcium Level 7.0 L 8.7-10.4 mg/dL Total Bilirubin 0.7 0.2-1.0 mg/dL Aspartate Amino Transferase (AST) 46 H 13-40 U/L Alanine Aminotransferase (ALT) 20 7-40 U/L Alkaline Phosphatase 130 H 46-116 U/L B-Type Natriuretic Peptide 119.51 0-100 pg/mL Total Protein 5.2 L 5.7-8.2 g/dL Albumin 2.2 L 3.2-4.8 g/dL Time of 1ST Reevaluation: 15:07 Reevaluation 1ST: Unchanged Patient Education/Counseling: Diagnosis, Treatment Family Education/Counseling: No Family Present Additional Information I reviewed the following notes from patient's past medical encounters: The following tests were ordered, and results were reviewed by me: I reviewed and agreed with the following test results read by other providers: Additional Information was gathered from interviewing the following independent historians: I discussed treatment and results with medical personnel and: Departure 1 Departure Time of Disposition: 16:48 (Patient presented with altered mental status and multifocal pneumonia concerning for sepsis. Patient has an element of volume overload so we will gave a decreased fluid bolus. We will admit patient for further workup and expert consultation) Impression: Primary Impression: Sepsis Qualified Codes: A41.9 - Sepsis, unspecified organism; R65.21 - Severe sepsis with septic shock; J96.01 - Acute respiratory failure with hypoxia Additional Impressions: Metabolic encephalopathy Multifocal pneumonia Disposition: ADMITTED INPATIENT Admit to: [facility] Condition: Guarded Critical Care Note Critical Care Time?: Yes Critical care comment: Acute hypoxia and sepsis Authorized and Performed by: Nuris Solomon MD Total critical care time: Approximately 42 minutes Due to a high probability of clinically significant, life threatening deterioration, the patient required my highest level of preparedness to interven e emergently and I personally spent this critical care time directly and personally managing the patient. This critical care time included obtaining a history; examining the patient; pulse oximetry; ordering and review of studies; arranging urgent treatment with development of a management plan; evaluation of patient's response to treatment; frequent reassessment; and, discussions with other providers. This critical care time was performed to assess and manage the high probability of imminent, life-threatening deterioration that could result in multi-organ failure. It was exclusive of separately billable procedures and treating other patients and teaching time. Please see my other sections and the rest of the note for further information on patient assessment and treatment. Stability Stability form required: No Heart Score Heart Score: Heart Score Response (Comments) Value History N/A 0 EKG N/A 0 Age N/A 0 Risk Factors N/A 0 Troponin N/A 0 Total 0 I personally scribed for NURIS SOLOMON MD ([email or web address]) on 11/14/24 at 14:10. Electr onically submitted by Eris Conde ([email or web address]). NURIS SOLOMON MD Nov 14, 2024 14:10
[2024-11-14 14:48] LABS: Basophils # (auto) 0 10 ^3/uL (0-0.2); Basophils % (auto) 0.3 % (0.0-2.0); Eosinophils # (auto) 0 10 ^3/uL (0-0.8); Eosinophils % (auto) 0.1 % (0.0-7.0); Hematocrit 30.1 % (41.0-53.0); Hemoglobin 9.6 g/dL (13.5-17.5); Lymphocytes # (auto) 0.7 10 ^3/uL (0.4-5.4); Lymphocytes % (auto) 8.1 % (10.0-50.0); Mean Corpuscular Hgb Conc. 31.8 g/dL (32.0-36.0); Mean Corpuscular Volume 94.2 fL (80.0-100.0); Monocytes # (auto) 0.5 10 ^3/uL (0-1.3); Monocytes % (auto) 6.3 % (0.0-12.0); Neutrophils # (auto) 7.2 10 ^3/uL (1.6-8.6); Neutrophils % (auto) 85.2 % (37.0-80.0); Nucleated Red Blood Cells % 0.1 %; Platelet Count (auto) 162 10^3/uL (140-450); Red Cell Distribution Width 16.6 % (11.8-14.3); White Blood Cell 8.4 10^3/uL (4.4-10.8)
--- NOTE | 2024-11-14 14:55 | DVH ---
CHEST RADIOGRAPH Indication: ams Technique: Single frontal view of the chest was obtained Comparison: None FINDINGS: Lines and Tubes: None Lungs: Bibasilar airspace opacities. Pleura: No effusion. No pneumothorax. Cardiomediastinal contours: Unremarkable Bones: No acute osseous abnormality. IMPRESSION: Bibasilar pneumonia.
[2024-11-14 15:21] LABS: Alanine Aminotransferase 20 U/L (7-40); Anion Gap 14 (5-15); BUN/Creatinine Ratio 17.5 (10.0-20.0); Bilirubin, Total 0.7 mg/dL (0.2-1.0)
[2024-11-14 15:25] LABS: Albumin 2.2 g/dL (3.2-4.8); Alkaline Phosphatase 130 U/L (46-116); Aspartate Aminotransferase 46 U/L (13-40); Blood Urea Nitrogen 25 mg/dL (9-23); Carbon Dioxide 17 mmol/L (20-31); Chloride 119 mmol/L (98-107); Glucose 124 mg/dL (74-106); Sodium 150 mmol/L (136-145); Total Protein 5.2 g/dL (5.7-8.2)
[2024-11-14 15:27] LABS: Potassium 2.5 mmol/L (3.5-5.1)
[2024-11-14] MEDS: CEFEPIME 2GM/50ML NS 50 ML IV ONE (15:45)
[2024-11-14 16:00] VITALS: PULSE 93; RESP 16; O2SAT 99
[2024-11-14 16:20] LABS: Urine Bacteria None Seen /hpf (None Seen)
[2024-11-14 16:39] LABS: Urine Blood Negative /uL (Negative); Urine Budding Yeast OCCASIONAL /hpf (None Seen); Urine Clarity Clear (Clear); Urine Color Yellow (Yellow); Urine Hyaline Cast FEW /lpf (0 - 2); Urine Protein, UAD 1+ (Negative); Urine Specific Gravity 1.016 (1.001-1.035); Urine Squamous Epithelial Cell FEW /hpf (<5); Urine Urobilinogen Normal (Negative); Urine WBC 5 /HPF (0-3); Urine pH 5.5 (5.0-9.0)
[2024-11-14 16:55] LABS: Lactic Acid w/Reflex 3.1 mmol/L (0.4-2.0)
[2024-11-14] MEDS: AZITHROMYCIN 250 MG TAB PO ONE (17:03)
[2024-11-14] MEDS: VANCOMYCIN 1GM/250ML KIT 200 ML IV ONE (17:03)
[2024-11-14] MEDS: POTASSIUM CHL 20MEQ/100ML 100 ML IV SCH (17:07)
[2024-11-14] MEDS: SODIUM CHLORIDE 0.9% 1,000 ML IV ONE (17:40)
[2024-11-14 19:30] VITALS: O2SAT 97
[2024-11-14] MEDS ORDERED: ONDANSETRON HCL 4 MG/2 ML VIAL IV PRN (19:30)
[2024-11-14] MEDS ORDERED: ACETAMINOPHEN 325 MG TAB PO PRN (19:30)
[2024-11-14 19:44] LABS: Anion Gap 12 (5-15)
[2024-11-14 19:49] LABS: BUN/Creatinine Ratio 17.6 (10.0-20.0); Glucose 105 mg/dL (74-106)
[2024-11-14 19:57] LABS: Blood Urea Nitrogen 23 mg/dL (9-23); Calcium 7.1 mg/dL (8.7-10.4); Carbon Dioxide 16 mmol/L (20-31); Chloride 121 mmol/L (98-107); Sodium 149 mmol/L (136-145)
[2024-11-14 19:59] LABS: Potassium 2.5 mmol/L (3.5-5.1)
--- NOTE | 2024-11-14 21:40 | DVHHP2 ---
History of Present Illness Reason for Visit: Generalized weakness History of Present Illness 88-year-old male presents for evaluation of generalized weakness. Patient resides at [facility] for the past two months after he had hip surgery. His son who was at the bedside reports patient becoming progressively weaker and has been refusing to eat or participate with physical therapy. Also in the patient's chart and was noted patient's saturation in the 80s for the past one day. Past Medical History Atrial fibrillation and dementia Past Surgical History Hip surgery Family History Noncontributory Smoke: No ALCOHOL: none Drugs: None Lives: with Family Review of Systems Review of Systems Review of systems are currently negative otherwise addressed in HPI. Allergies: Coded Allergies: NO KNOWN ALLERGIES (Unverified , 08/22/24) Medications Current Medications Medications Dose Ordered Sig/Efrain Route Start Time Stop Time Status Last Admin Dose Admin Potassium Chloride 100 ml @ 50 mls/hr Q2H IV 11/14/24 16:15 11/15/24 00:14 11/14/24 18:36 50 MLS/HR Ceftriaxone Sodium 50 ml @ 100 mls/hr DAILY@09 IV 11/15/24 09:00 Azithromycin 250 ml @ 125 mls/hr DAILY IV 11/15/24 10:00 Memantine 10 mg Q12HR PO 11/14/24 22:00 Rivaroxaban 20 mg DAILY PO 11/15/24 10:00 Future Hold Ondansetron HCl 4 mg Q4HP PRN IV 11/14/24 19:30 Enoxaparin Sodium 30 mg DAILY SC 11/15/24 10:00 Acetaminophen 650 mg Q6HP PRN PO 11/14/24 19:30 Exam Vital Signs Vital Signs Date Time Temp Pulse Resp B/P (MAP) Pulse Ox O2 Delivery O2 Flow Rate FiO2 11/14/24 20:30 97.8 93 24 115/85 (95) 94 97.8 11/14/24 19:30 Nasal Cannula* 2 28 Exam Gen: 88-year-old male in mild distress, confused Skin: Warm, dry, normal color and texture, no rash. HEENT: Normocephalic atraumatic, mucous membranes moist and pink. Neck: Cervical and supraclavicular nodes normal without enlargement, trachea is midline, thyroid gland is normal without masses. Pulmonary: Clear to auscultation and percussion bilaterally. Cardiac: Regular rate and rhythm. No murmur Abdomen: Soft, nontender, nondistended, bowel sounds present all 4 quadrants, no guarding, no rigidity, no organomegaly. Extremities: No cyanosis, clubbing, no edema Neuro: Cranial nerves II through XII grossly intact, normal affect and speech, no focal motor deficits. Labs/Xrays ORDERING PHYSICIAN: NURIS MAURER MD PROCEDURE(s): CXRP - CHEST PORTABLE REASON: ams ORDER NUMBER(s): [id number], ACCESSION NUMBER(s): [id number] CHEST RADIOGRAPH Indication: ams Technique: Single frontal view of the chest was obtained Comparison: None FINDINGS: Lines and Tubes: None Lungs: Bibasilar airspace opacities. Pleura: No effusion. No pneumothorax. Cardiomediastinal contours: Unremarkable Bones: No acute osseous abnormality. IMPRESSION: Bibasilar pneumonia. Labs Test 11/14/24 19:21 11/14/24 17:18 11/14/24 16:11 11/14/24 16:05 Range/Units Sodium Level 149 H 136-145 mmol/L Potassium Level 2.5 *L 3.5-5.1 mmol/L Chloride Level 121 H 98-107 mmol/L Carbon Dioxide Level 16 L 20-31 mmol/L Anion Gap 12 5-15 Blood Urea Nitrogen 23 9-23 mg/dL Creatinine 1.31 H 0.700-1.30 mg/dL Glomerular Filtration Rate Calc 52 >90 mL/min BUN/Creatinine Ratio 17.6 10.0-20.0 Serum Glucose 105 74-106 mg/dL Calcium Level 7.1 L 8.7-10.4 mg/dL Lactic Acid Level 1.7 0.4-2.0 mmol/L Troponin I High Sensitivity 27 </=54 ng/L POC Glucose 101 70-106 mg/dl Urine Color Yellow Yellow Urine Clarity Clear Clear Urine pH 5.5 5.0-9.0 Urine Specific [place] 1.016 1.001-1.035 Urine Protein 1+ H Negative Urine Ketones Negative Negative Urine Blood Negative Negative /uL Urine Nitrite Negative Negative Urine Bilirubin Negative Negative Urine Urobilinogen Normal Negative mg/dL Urine Leukocyte Esterase Trace Negative /uL Urine RBC 1 0 - 3 /hpf Urine Microscopic WBC 5 H 0-3 /HPF Urine Squamous Epithelial Cells Few <5 /hpf Urine Bacteria None seen None Seen /hpf Urine Hyaline Casts Few 0 - 2 /lpf Urine Yeast (Budding) Occasional None Seen /hpf Urine Glucose Normal Normal mg/dL Test 11/14/24 14:30 Range/Units White Blood Count 8.4 4.4-10.8 10^3/uL Red Blood Count 3.20 L 4.5-5.90 10^6/uL Hemoglobin 9.6 L 13.5-17.5 g/dL Hematocrit 30.1 L 41.0-53.0 % Mean Corpuscular Volume 94.2 80.0-100.0 fL Mean Corpuscular Hemoglobin 30.0 28.0-32.0 pg Mean Corpuscular Hemoglobin Concent 31.8 L 32.0-36.0 g/dL Red Cell Distribution Width 16.6 H 11.8-14.3 % Platelet Count 162 140-450 10^3/uL Mean Platelet Volume 7.1 6.9-10.8 fL Neutrophils (%) (Auto) 85.2 H 37.0-80.0 % Lymphocytes (%) (Auto) 8.1 L 10.0-50.0 % Monocytes (%) (Auto) 6.3 0.0-12.0 % Eosinophils (%) (Auto) 0.1 0.0-7.0 % Basophils (%) (Auto) 0.3 0.0-2.0 % Neutrophils # (Auto) 7.2 1.6-8.6 10 ^3/uL Lymphocytes # (Auto) 0.7 0.4-5.4 10 ^3/uL Monocytes # (Auto) 0.5 0-1.3 10 ^3/uL Eosinophils # (Auto) 0 0-0.8 10 ^3/uL Basophils # (Auto) 0 0-0.2 10 ^3/uL Nucleated Red Blood Cells 0.1 % Total Bilirubin 0.7 0.2-1.0 mg/dL Aspartate Amino Transferase (AST) 46 H 13-40 U/L Alanine Aminotransferase (ALT) 20 7-40 U/L Alkaline Phosphatase 130 H 46-116 U/L B-Type Natriuretic Peptide 119.51 0-100 pg/mL Total Protein 5.2 L 5.7-8.2 g/dL Albumin 2.2 L 3.2-4.8 g/dL Assessment/Plan Assessment/Plan Assessment Community-acquired pneumonia Metabolic encephalopathy Acute kidney injury Dementia Plan Admit the patient to Med surge to the hospitalist Rocephin/azithromycin Replete electrolytes Maintenance IV fluids Resume home medications Continue treatment per orders. Plan discussed with: Patient My Orders Orders - DAVID OSMAN Procedure Category Date Status Time Ceftriaxone 1gm/50ml PHA 11/15/24 In Process D5w (Rocephin) 09:00 Azithromycin 500mg/ PHA 11/15/24 In Process 250ml (Zithromax 50 10:00 Memantine Tablet PHA 11/14/24 In Process (Namenda Tablet) 22:00 Rivaroxaban Tablet PHA 11/15/24 In Process (Xarelto Tablet) 10:00 Basic Metabolic Panel LAB 11/15/24 Verified 04:00 Admit ADMIT 11/14/24 Transmitted 19:26 Ondansetron Hcl PHA 11/14/24 In Process (Zofran) 19:30 Complete Blood Count LAB 11/15/24 Verified 04:00 Cardiac DIET 11/15/24 Transmitted Diet-2gna,Lofat,Lochol Breakfast Condition: Stable EREN 11/14/24 In Process 19:26 Acetaminophen Tablet PHA 11/14/24 In Process (Tylenol Tablet) 19:30 Bedrest With Bathroom EREN 11/14/24 In Process Privileg 19:26 Enoxaparin Sodium PHA 11/15/24 In Process (Lovenox) 10:00 Date of Service: Nov 14, 2024 Billing Provider: DAVID OSMAN Common Visit Codes: [id number] INP/OBS CARE (HIGH) DAVID OSMAN Nov 14, 2024 21:40
[2024-11-14 21:49] VITALS: PULSE 80; RESP 16; O2SAT 99
[2024-11-14 21:50] VITALS: BP 109/58; PULSE 80; RESP 16; TEMP 97.7; O2SAT 95
[2024-11-14] MEDS: MEMANTINE HCL 5 MG TAB PO SCH (22:00)
[2024-11-14] MEDS: POTASSIUM CHLORIDE 40 MEQ in SOD CHL 0.45% 1,000 ML IV SCH (22:44)
[2024-11-15] VITALS (8 sets, daily range): BP systolic 90–120; BP diastolic 47–68; PULSE 70–98; RESP 16–19; TEMP 97.6–98.1; O2SAT 90–97
[2024-11-15 07:31] LABS: Basophils # (auto) 0 10 ^3/uL (0-0.2); Basophils % (auto) 0.1 % (0.0-2.0); Eosinophils # (auto) 0 10 ^3/uL (0-0.8); Eosinophils % (auto) 0.5 % (0.0-7.0); Hematocrit 26.8 % (41.0-53.0); Hemoglobin 8.8 g/dL (13.5-17.5); Lymphocytes # (auto) 1.6 10 ^3/uL (0.4-5.4); Mean Corpuscular Hgb Conc. 32.6 g/dL (32.0-36.0); Mean Corpuscular Volume 94.9 fL (80.0-100.0); Monocytes # (auto) 0.5 10 ^3/uL (0-1.3); Monocytes % (auto) 4.4 % (0.0-12.0); Neutrophils # (auto) 8.5 10 ^3/uL (1.6-8.6); Nucleated Red Blood Cells % 0.1 %; Platelet Count (auto) 154 10^3/uL (140-450); Red Blood Cells 2.83 10^6/uL (4.5-5.90); Red Cell Distribution Width 16.2 % (11.8-14.3); White Blood Cell 10.6 10^3/uL (4.4-10.8)
[2024-11-15 08:58] LABS: Anion Gap 14 (5-15)
[2024-11-15 09:00] LABS: Calcium 6.7 mg/dL (8.7-10.4); Carbon Dioxide 13 mmol/L (20-31); Chloride 124 mmol/L (98-107); Sodium 151 mmol/L (136-145)
[2024-11-15] MEDS ORDERED: cefTRIAXone 1GM/50ML D5W 50 ML IV SCH (09:00)
[2024-11-15 09:03] LABS: BUN/Creatinine Ratio 18.8 (10.0-20.0)
[2024-11-15 09:07] LABS: Blood Urea Nitrogen 24 mg/dL (9-23); Glucose 73 mg/dL (74-106)
--- NOTE | 2024-11-15 09:50 | DVHPN2 ---
Progress Note Date Seen: Nov 15, 2024 Medical Necessity Reason Pt with a Central, PICC or Fol: Yes The following are medically ne: Jules Catheter Reason for jules catheter: Strict I&O Subjective Patient reports: No new complaints Review of Systems: HEENT:Normal, CVS:Normal, RESPIRATORY:Normal, GI:Normal, :Normal, MSK:Normal, NEURO:Normal Objective vital signs Vital Sign Date Time Temp Pulse Resp B/P (MAP) Pulse Ox O2 Delivery O2 Flow Rate FiO2 11/15/24 09:00 98.1 90 16 98/50 (66) 94 98.1 11/14/24 21:49 Nasal Cannula* 2 28 Total Intake and Output 11/14/24 11/14/24 11/15/24 15:00 23:00 07:00 Intake Total 1350 ml 680 ml Output Total 650 ml Balance 1350 ml 30 ml medications Current Medications Medications Dose Ordered Sig/Efrain Route Start Time Stop Time Status Last Admin Dose Admin Ceftriaxone Sodium 50 ml @ 100 mls/hr DAILY@09 IV 11/15/24 09:00 Azithromycin 250 ml @ 125 mls/hr DAILY IV 11/15/24 10:00 Memantine 10 mg Q12HR PO 11/14/24 22:00 Rivaroxaban 20 mg DAILY PO 11/15/24 10:00 Future Hold Ondansetron HCl 4 mg Q4HP PRN IV 11/14/24 19:30 Enoxaparin Sodium 30 mg DAILY SC 11/15/24 10:00 Acetaminophen 650 mg Q6HP PRN PO 11/14/24 19:30 Potassium Chloride 40 meq/ Sodium Chloride 1,020 ml @ 80 mls/hr [id number] IV 11/14/24 21:30 11/15/24 23:30 11/14/24 22:44 80 MLS/HR Examination: GENERAL:Normal, HEENT:Normal, NECK:Normal, LUNGS:Normal, CVS:Normal, ABDOMEN:Normal, MSK:Normal, SKIN:Normal, NEURO:Normal, NEURO:Abnormal (confused), :Normal laboratory and microbiology Laboratory Tests 11/15/24 06:42 Test 11/15/24 06:42 Range/Units Serum Glucose 73 L 74-106 mg/dL Microbiology Date/Time Source Procedure Growth Status 11/14/24 16:05 Urine - Catheterized Urine Culture - Preliminary Resulted Problem List/Assessment/Plan Problem List/Assessment/Plan #1 uti ?sepsis: iv unasyn #2 bilateral pneumonia ?sepsis: iv unasyn #3 anemia: stool occult #4 encephalopathy- metabolic #5 afib with secondary hypercoagulable state: on xarelto #6 dementia #7 hypokalemia: replace #8 hypernatremia: free water #9 s/p left hip fracture advance care planning- full code- time spent 19 mins Plan discussed with: Patient Date of Service: Nov 15, 2024 Billing Provider: DAVID ROSA MD Common Visit Codes: [id number] INP/OBS CARE(HIGH) Secondary Visit Codes: [id number] CARE PLAN 30 MINUTES DAVID ROSA MD Nov 15, 2024 09:50
[2024-11-15] MEDS: ENOXAPARIN SOD 30 MG/0.3 ML SYRINGE SC SCH (09:52)
[2024-11-15] MEDS ORDERED: RIVAROXABAN 20 MG TAB PO SCH (10:00)
[2024-11-15] MEDS ORDERED: AZITHROMYCIN 500MG/ 250ML 250 ML IV SCH (10:00)
[2024-11-15] MEDS: AMPICILLIN & SULBACTAM SODIUM 3 GM in SODIUM CHL 0.9% 100 ML IV SCH (10:30)
[2024-11-15] MEDS: D5W 5% 1,000 ML IV SCH (12:30)
[2024-11-15] MEDS: POTASSIUM CHLORIDE 40 MEQ, LIDOCAINE 1% (LOCAL ANESTH.) 4 ML in SODIUM CHL 0.9% 250 ML IV ONE (12:31)
[2024-11-16 01:00] VITALS: BP 96/46; PULSE 84; RESP 18; TEMP 97.8; O2SAT 97
--- NOTE | 2024-11-16 05:07 | DVH ---
EXAM: XR Chest, 1 View CLINICAL INDICATION: PNEUMONIA TECHNIQUE: Frontal view of the chest. COMPARISON: XY CHEST PORTABLE on DOS: 11/14/24, XY CHEST XRAY 1 VIEW on DOS: 08/24/24 FINDINGS: LUNGS AND PLEURAL SPACES: Congestion and edema. No pneumothorax. HEART: Unremarkable. No cardiomegaly. MEDIASTINUM: Unremarkable. Normal mediastinal contour. BONES/JOINTS: Unremarkable. No acute fracture. OTHER FINDINGS: No significant change from the prior exam. . None. . .. IMPRESSION: No significant change from the prior exam.
[2024-11-16 07:55] VITALS: PULSE 73; RESP 20; O2SAT 90
[2024-11-16 09:00] VITALS: BP 113/48; PULSE 68; RESP 19; TEMP 97.4
[2024-11-16] MEDS: POTASSIUM CHLORIDE 20 MEQ, LIDOCAINE 1% (LOCAL ANESTH.) 2 ML in SODIUM CHL 0.9% 100 ML IV ONE (10:30)
--- NOTE | 2024-11-16 10:43 | DVHPN2 ---
Progress Note Date Seen: Nov 16, 2024 Medical Necessity Reason Pt with a Central, PICC or Fol: Yes The following are medically ne: Jules Catheter Reason for jules catheter: Strict I&O Subjective Patient reports: No new complaints Review of Systems: HEENT:Normal, CVS:Normal, RESPIRATORY:Normal, GI:Normal, :Normal, MSK:Normal, NEURO:Normal Objective vital signs Vital Sign Date Time Temp Pulse Resp B/P (MAP) Pulse Ox O2 Delivery O2 Flow Rate FiO2 11/16/24 09:00 97.4 68 19 113/48 (69) 97.4 11/16/24 01:00 97 11/15/24 20:00 Nasal Cannula* 4 36 Total Intake and Output 11/15/24 11/15/24 11/16/24 15:00 23:00 07:00 Intake Total 250 ml 500 ml Output Total 650 ml 1100 ml Balance -400 ml -600 ml medications Current Medications Medications Dose Ordered Sig/Efrain Route Start Time Stop Time Status Last Admin Dose Admin Memantine 10 mg Q12HR PO 11/14/24 22:00 11/16/24 10:13 10 MG Rivaroxaban 20 mg DAILY PO 11/15/24 10:00 Hold Ondansetron HCl 4 mg Q4HP PRN IV 11/14/24 19:30 Enoxaparin Sodium 30 mg DAILY SC 11/15/24 10:00 11/16/24 10:14 30 MG Acetaminophen 650 mg Q6HP PRN PO 11/14/24 19:30 Ampicillin Sodium/ Sulbactam Sodium 3 gm/Sodium Chloride 100 ml @ 100 mls/hr Q6HR IV 11/15/24 10:30 11/16/24 05:14 100 MLS/HR Dextrose 1,000 ml @ 75 mls/hr [id number] IV 11/15/24 09:45 11/15/24 12:30 75 MLS/HR Examination: GENERAL:Normal, HEENT:Normal, NECK:Normal, LUNGS:Normal, CVS:Normal, ABDOMEN:Normal, MSK:Normal, SKIN:Normal, NEURO:Normal, NEURO:Abnormal (confused), :Normal laboratory and microbiology Laboratory Tests 11/15/24 06:42 Test 11/15/24 06:42 Range/Units Serum Glucose 73 L 74-106 mg/dL Microbiology Date/Time Source Procedure Growth Status 11/15/24 00:05 Nose MRSA Screen - Final Complete 11/14/24 17:18 Blood Blood Culture - Preliminary NO GROWTH AFTER 24 HOURS OF INCUBATION. Resulted 11/14/24 16:05 Urine - Catheterized Urine Culture - Preliminary Resulted Problem List/Assessment/Plan Problem List/Assessment/Plan #1 uti ?sepsis: iv unasyn #2 bilateral pneumonia ?sepsis: iv unasyn #3 anemia: stool occult positive, dc xarelto, iv iron #4 encephalopathy- metabolic #5 afib with secondary hypercoagulable state: dc xarelto #6 dementia #7 hypokalemia: replace #8 hypernatremia: free water #9 s/p left hip fracture refusing to eat. will arrange family meeting advance care planning- full code- time spent 19 mins Plan discussed with: Patient My Orders My Orders Orders - DAVID ROSA MD Procedure Category Date Status Time Apply: EREN 11/15/24 In Process 15:01 Foam Cradle To ORDERS 11/15/24 Transmitted Bilateral Feet 15:01 Apply Z-Guard EREN 11/15/24 In Process 15:01 Magnesium LAB 11/16/24 Logged 06:00 D5 W Potassium 20meq PHA 11/16/24 Verified 10:30 Potassium Chl [place] PHA 11/16/24 Verified KCL 10:30 Iron Ivpb PHA 11/16/24 Verified 12:00 Basic Metabolic Panel LAB 11/17/24 Verified 06:00 Complete Blood Count LAB 11/17/24 Verified 06:00 Magnesium LAB 11/17/24 Verified 05:00 Date of Service: Nov 16, 2024 Billing Provider: DAVID ROSA MD Common Visit Codes: [id number] INP/OBS CARE(HIGH) Secondary Visit Codes: [id number] CARE PLAN 30 MINUTES DAVID ROSA MD Nov 16, 2024 10:43
[2024-11-16 10:45] LABS: Basophils # (auto) 0 10 ^3/uL (0-0.2); Basophils % (auto) 0.2 % (0.0-2.0); Eosinophils # (auto) 0.1 10 ^3/uL (0-0.8); Eosinophils % (auto) 1.6 % (0.0-7.0); Hematocrit 26.7 % (41.0-53.0); Hemoglobin 8.7 g/dL (13.5-17.5); Lymphocytes # (auto) 1.2 10 ^3/uL (0.4-5.4); Lymphocytes % (auto) 14.1 % (10.0-50.0); Mean Corpuscular Hemoglobin 30.6 pg (28.0-32.0); Mean Corpuscular Hgb Conc. 32.7 g/dL (32.0-36.0); Mean Corpuscular Volume 93.7 fL (80.0-100.0); Monocytes # (auto) 0.5 10 ^3/uL (0-1.3); Monocytes % (auto) 5.7 % (0.0-12.0); Neutrophils # (auto) 6.5 10 ^3/uL (1.6-8.6); Neutrophils % (auto) 78.4 % (37.0-80.0); Platelet Count (auto) 143 10^3/uL (140-450); Red Blood Cells 2.85 10^6/uL (4.5-5.90); Red Cell Distribution Width 16.9 % (11.8-14.3); White Blood Cell 8.3 10^3/uL (4.4-10.8)
[2024-11-16 11:05] LABS: INR 1.17 (0.9-1.15); Partial Thromboplastin Time 35.9 SEC (24.5-34.5); Prothrombin Time 12.2 sec (9.3-11.8)
[2024-11-16 11:13] LABS: Anion Gap 12 (5-15)
[2024-11-16 11:17] LABS: BUN/Creatinine Ratio 18.6 (10.0-20.0); Blood Urea Nitrogen 22 mg/dL (9-23)
[2024-11-16 11:18] LABS: Carbon Dioxide 15 mmol/L (20-31); Chloride 122 mmol/L (98-107); Glucose 54 mg/dL (74-106); Magnesium 1.1 mg/dL (1.6-2.6); Potassium 3.3 mmol/L (3.5-5.1); Sodium 149 mmol/L (136-145)
[2024-11-16 13:00] VITALS: BP 102/49; PULSE 84; RESP 18; TEMP 97.4; O2SAT 84
[2024-11-16] MEDS: IRON SUCROSE COMPLEX 110 ML IV SCH (14:37)
[2024-11-16] MEDS: POTASSIUM CHLORIDE 20 MEQ in D5W 5% 1,000 ML IV SCH (16:35)
[2024-11-16 17:00] VITALS: BP 106/44; PULSE 84; RESP 19; TEMP 97.6; O2SAT 94
[2024-11-16 20:19] VITALS: BP 109/65; PULSE 73; RESP 16; TEMP 97.8; O2SAT 99
[2024-11-17] VITALS (8 sets, daily range): BP systolic 90–180; BP diastolic 34–129; PULSE 68–84; RESP 16–22; TEMP 97.7–98.3; O2SAT 92–100
[2024-11-17 09:45] LABS: Basophils # (auto) 0 10 ^3/uL (0-0.2); Basophils % (auto) 0.3 % (0.0-2.0); Eosinophils # (auto) 0.2 10 ^3/uL (0-0.8); Eosinophils % (auto) 2.2 % (0.0-7.0); Hematocrit 27.8 % (41.0-53.0); Hemoglobin 9.1 g/dL (13.5-17.5); Lymphocytes # (auto) 1.1 10 ^3/uL (0.4-5.4); Lymphocytes % (auto) 14.9 % (10.0-50.0); Mean Corpuscular Hemoglobin 30.6 pg (28.0-32.0); Mean Corpuscular Hgb Conc. 32.7 g/dL (32.0-36.0); Mean Corpuscular Volume 93.4 fL (80.0-100.0); Monocytes # (auto) 0.4 10 ^3/uL (0-1.3); Monocytes % (auto) 4.9 % (0.0-12.0); Neutrophils # (auto) 5.6 10 ^3/uL (1.6-8.6); Neutrophils % (auto) 77.7 % (37.0-80.0); Nucleated Red Blood Cells % 0.1 %; Platelet Count (auto) 143 10^3/uL (140-450); Red Blood Cells 2.97 10^6/uL (4.5-5.90); Red Cell Distribution Width 16.9 % (11.8-14.3); White Blood Cell 7.2 10^3/uL (4.4-10.8)
[2024-11-17 09:58] LABS: Potassium 3.7 mmol/L (3.5-5.1); Sodium 144 mmol/L (136-145)
[2024-11-17 09:59] LABS: Anion Gap 12 (5-15)
[2024-11-17 10:00] LABS: Calcium 6.9 mg/dL (8.7-10.4); Carbon Dioxide 16 mmol/L (20-31); Chloride 116 mmol/L (98-107)
[2024-11-17 10:04] LABS: BUN/Creatinine Ratio 19.6 (10.0-20.0); Blood Urea Nitrogen 21 mg/dL (9-23); Glucose 87 mg/dL (74-106)
[2024-11-17 10:27] LABS: Magnesium 1.1 mg/dL (1.6-2.6)
--- NOTE | 2024-11-17 12:18 | DVHPN2 ---
Subjective Denies any symptoms Reviewed: Care Plan, H&P, Labs, Medications Changes from previous H/P or p: No Changes General: Per HPI Gastrointestinal: Nausea, Vomiting Objective Vitals Vital Signs Date Time Temp Pulse Resp B/P (MAP) Pulse Ox O2 Delivery O2 Flow Rate FiO2 11/17/24 08:49 81 17 92/58 (69) 92 11/17/24 08:00 Nasal Cannula* 4 36 11/17/24 04:54 97.7 97.7 Intake/Output Intake and Output 11/17/24 07:00 Intake Total 840 ml Output Total 2000 ml Balance -1160 ml Intake Oral 430 ml IV Total 410 ml Output Urine Total 2000 ml # Bowel Movements 2 General Appearance: Alert HEENT: Atraumatic, PERRLA Cardiovascular: Normal S1, Normal S2 Abdomen: Normal bowel sounds, Soft, No tenderness Back: Flank Tenderness, Midline Tenderness Musculoskeletal: Normal sensory function, Normal motor function Skin: Dry, Intact Medications Current Medications Medications Dose Ordered Sig/Efrain Route Start Time Stop Time Status Last Admin Dose Admin Memantine 10 mg Q12HR PO 11/14/24 22:00 11/17/24 09:39 10 MG Ondansetron HCl 4 mg Q4HP PRN IV 11/14/24 19:30 Enoxaparin Sodium 30 mg DAILY SC 11/15/24 10:00 11/17/24 09:39 30 MG Acetaminophen 650 mg Q6HP PRN PO 11/14/24 19:30 Ampicillin Sodium/ Sulbactam Sodium 3 gm/Sodium Chloride 100 ml @ 100 mls/hr Q6HR IV 11/15/24 10:30 11/17/24 05:07 100 MLS/HR Potassium Chloride 20 meq/ Dextrose 1,010 ml @ 75 mls/hr [id number] IV 11/16/24 10:30 11/16/24 16:35 75 MLS/HR Iron Sucrose 110 ml @ 110 mls/hr DAILY@1200 IV 11/16/24 12:00 11/20/24 12:59 11/16/24 14:37 110 MLS/HR Laboratory Results Laboratory Tests 11/17/24 09:23 Chemistry Test 11/17/24 09:23 Calcium Level 6.9 mg/dL (8.7-10.4) L Magnesium Level 1.1 mg/dL (1.6-2.6) L Urinalysis Test 11/14/24 16:05 Urine Color Yellow (Yellow) Urine Clarity Clear (Clear) Urine pH 5.5 (5.0-9.0) Urine Specific [place] 1.016 (1.001-1.035) Urine Protein 1+ (Negative) H Urine Ketones Negative (Negative) Urine Blood Negative /uL (Negative) Urine Nitrite Negative (Negative) Urine Bilirubin Negative (Negative) Urine Urobilinogen Normal mg/dL (Negative) Urine Leukocyte Esterase Trace /uL (Negative) Urine RBC 1 /hpf (0 - 3) Urine Microscopic WBC 5 /HPF (0-3) H Urine Squamous Epithelial Cells Few /hpf (<5) Urine Bacteria None seen /hpf (None Seen) Urine Hyaline Casts Few /lpf (0 - 2) Urine Yeast (Budding) Occasional /hpf (None Urine Glucose Normal mg/dL (Normal) Microbiology Microbiology Date/Time Source Procedure Growth Status 11/15/24 00:05 Nose MRSA Screen - Final Complete 11/14/24 17:18 Blood Blood Culture - Preliminary NO GROWTH AFTER 48 HOURS OF INCUBATION. Resulted 11/14/24 16:05 Urine - Catheterized Urine Culture - Final Enterococcus faecalis Complete Labs and/or images reviewed: Labs reviewed by me, Image(s) reviewed by me Assessment/Plan Assessment/Plan Impression: -sepsis -UTI -anemia -AFib -dementia -hypokalemia -bilateral pneumonia, probable Gram-positive/Gram-negative etiology -left hip fracture -hypokalemia -hyponatremia -metabolic encephalopathy Plan: -continue IV antibiotic therapy with Unasyn -hold blood thinners given positive stool for occult blood -electrolyte replacement -continue free water -discharge planning. Discussed with patient's son who was bedside. At this time they wished to continue care, and to his not want the patient to be on hospice or transferred to snf facility. Total time spent with patient discussing and formulating plan of care: 35 minutes. This medical document was created using an electronic medical record system with [employer] dictation system. Although this document has been carefully reviewed, there may still be some phonetic and typographical errors. These areas are purely typographical due to imperfections of the software programs, and do not reflect any compromise in the patient's medical care. Plan discussed with: Patient, Other (RN) My Orders Orders - JOLIE STEELE RADIO RECORDER Procedure Category Date Status Time Chest Portable XY 11/18/24 Logged 04:00 Basic Metabolic Panel LAB 11/18/24 Verified 04:00 Complete Blood Count LAB 11/18/24 Verified 04:00 Date of Service: Nov 17, 2024 Billing Provider: JOLIE STEELE NP Common Visit Codes: [id number] INP/OBS CARE(HIGH) JOLIE STEELE NP Nov 17, 2024 12:18
[2024-11-18 01:00] VITALS: BP 107/56; PULSE 78; RESP 18; TEMP 98.1; O2SAT 95
[2024-11-18 05:00] VITALS: BP 101/48; PULSE 62; RESP 17; TEMP 98.3; O2SAT 90
--- NOTE | 2024-11-18 06:58 | DVH ---
CHEST RADIOGRAPH Indication: PNa Technique: Single frontal view of the chest was obtained Comparison: XY CHEST PORTABLE on DOS: 11/16/24, XY CHEST PORTABLE on DOS: 11/14/24, XY CHEST XRAY 1 VIE W on DOS: 08/24/24 IMPRESSION: The heart appears mildly enlarged. Bilateral alveolar and interstitial airspace opacities appear wor sened. No sizable effusion or pneumothorax.
[2024-11-18 07:39] LABS: Anion Gap 11 (5-15); Potassium 3.5 mmol/L (3.5-5.1); Sodium 140 mmol/L (136-145)
[2024-11-18 07:45] LABS: BUN/Creatinine Ratio 15.5 (10.0-20.0); Blood Urea Nitrogen 17 mg/dL (9-23); Glucose 77 mg/dL (74-106)
[2024-11-18 07:48] LABS: Calcium 6.7 mg/dL (8.7-10.4); Carbon Dioxide 15 mmol/L (20-31); Chloride 114 mmol/L (98-107)
[2024-11-18 07:49] LABS: Basophils # (auto) 0 10 ^3/uL (0-0.2); Basophils % (auto) 0.2 % (0.0-2.0); Eosinophils # (auto) 0.1 10 ^3/uL (0-0.8); Hematocrit 26.1 % (41.0-53.0); Hemoglobin 8.5 g/dL (13.5-17.5); Lymphocytes % (auto) 16.5 % (10.0-50.0); Mean Corpuscular Hemoglobin 30.5 pg (28.0-32.0); Mean Corpuscular Hgb Conc. 32.7 g/dL (32.0-36.0); Mean Corpuscular Volume 93.4 fL (80.0-100.0); Monocytes # (auto) 0.3 10 ^3/uL (0-1.3); Monocytes % (auto) 4.8 % (0.0-12.0); Neutrophils # (auto) 4.6 10 ^3/uL (1.6-8.6); Neutrophils % (auto) 76.5 % (37.0-80.0); Nucleated Red Blood Cells % 0.2 %; Platelet Count (auto) 121 10^3/uL (140-450); Red Cell Distribution Width 16.5 % (11.8-14.3)
[2024-11-18 09:19] VITALS: BP 89/46; PULSE 96; RESP 20; TEMP 97.7; O2SAT 95
[2024-11-18 13:00] VITALS: BP 102/63; PULSE 94; RESP 20; TEMP 97.9; O2SAT 94
--- NOTE | 2024-11-18 13:13 | DVHPN2 ---
Reviewed: Care Plan, H&P, Labs, Medications Changes from previous H/P or p: No Changes General: Per HPI Gastrointestinal: Nausea, Vomiting Objective Vitals Vital Signs Date Time Temp Pulse Resp B/P (MAP) Pulse Ox O2 Delivery O2 Flow Rate FiO2 11/18/24 09:19 97.7 96 20 89/46 (60) 95 97.7 11/18/24 08:00 Nasal Cannula* 4 36 Intake/Output Intake and Output 11/18/24 07:00 Intake Total 1225 ml Output Total 1225 ml Balance 0 ml Intake Oral 490 ml IV Total 735 ml Output Urine Total 1225 ml # Bowel Movements 4 General Appearance: Alert HEENT: Atraumatic, PERRLA Cardiovascular: Normal S1, Normal S2 Abdomen: Normal bowel sounds, Soft, No tenderness Back: Flank Tenderness, Midline Tenderness Musculoskeletal: Normal sensory function, Normal motor function Skin: Dry, Intact Medications Current Medications Medications Dose Ordered Sig/Efrain Route Start Time Stop Time Status Last Admin Dose Admin Memantine 10 mg Q12HR PO 11/14/24 22:00 11/18/24 09:34 10 MG Ondansetron HCl 4 mg Q4HP PRN IV 11/14/24 19:30 Enoxaparin Sodium 30 mg DAILY SC 11/15/24 10:00 11/18/24 09:34 30 MG Acetaminophen 650 mg Q6HP PRN PO 11/14/24 19:30 Ampicillin Sodium/ Sulbactam Sodium 3 gm/Sodium Chloride 100 ml @ 100 mls/hr Q6HR IV 11/15/24 10:30 11/18/24 11:17 100 MLS/HR Potassium Chloride 20 meq/ Dextrose 1,010 ml @ 75 mls/hr [id number] IV 11/16/24 10:30 11/17/24 23:44 75 MLS/HR Iron Sucrose 110 ml @ 110 mls/hr DAILY@1200 IV 11/16/24 12:00 11/20/24 12:59 11/18/24 12:27 110 MLS/HR Laboratory Results Laboratory Tests 11/18/24 06:51 Chemistry Test 11/18/24 06:51 Calcium Level 6.7 mg/dL (8.7-10.4) L Urinalysis Test 11/14/24 16:05 Urine Color Yellow (Yellow) Urine Clarity Clear (Clear) Urine pH 5.5 (5.0-9.0) Urine Specific [place] 1.016 (1.001-1.035) Urine Protein 1+ (Negative) H Urine Ketones Negative (Negative) Urine Blood Negative /uL (Negative) Urine Nitrite Negative (Negative) Urine Bilirubin Negative (Negative) Urine Urobilinogen Normal mg/dL (Negative) Urine Leukocyte Esterase Trace /uL (Negative) Urine RBC 1 /hpf (0 - 3) Urine Microscopic WBC 5 /HPF (0-3) H Urine Squamous Epithelial Cells Few /hpf (<5) Urine Bacteria None seen /hpf (None Seen) Urine Hyaline Casts Few /lpf (0 - 2) Urine Yeast (Budding) Occasional /hpf (None Urine Glucose Normal mg/dL (Normal) Microbiology Microbiology Date/Time Source Procedure Growth Status 11/15/24 00:05 Nose MRSA Screen - Final Complete 11/14/24 17:18 Blood Blood Culture - Preliminary NO GROWTH AFTER 72 HOURS OF INCUBATION. Resulted 11/14/24 16:05 Urine - Catheterized Urine Culture - Final Enterococcus faecalis Complete Labs and/or images reviewed: Labs reviewed by me, Image(s) reviewed by me Assessment/Plan Assessment/Plan Sepsis secondary to UTI: Urine cultures growing E faecalis, continue Unasyn Acute urinary tract infection Bilateral community-acquired pneumonia History of left hip fracture Hyponatremia Metabolic Anemia AFib Dementia Hypokalemia Time spent 65 minutes Nigel Francois Khushboo [phone] at bedside Patient came from [facility], family requesting another care home facility Plan discussed with: Patient Date of Service: Nov 18, 2024 Billing Provider: ABBIE PALOMINO MD Common Visit Codes: [id number] CARE 30-74 MIN ABBIE PALOMINO MD Nov 18, 2024 13:12
[2024-11-18 16:17] LABS: COVID19 ANTIGEN SOFIA FIA NEGATIVE (NEGATIVE); Rapid Influenza A Negative (Negative); Rapid Influenza B Negative (Negative)
[2024-11-18 17:30] VITALS: BP 91/37; PULSE 86; RESP 20; TEMP 97.9; O2SAT 94
[2024-11-18 21:00] VITALS: BP 145/36; PULSE 91; RESP 19; TEMP 97.3; O2SAT 96
[2024-11-19 00:44] VITALS: BP 119/41; PULSE 98; RESP 19; TEMP 97.3; O2SAT 98
[2024-11-19 05:00] VITALS: BP 134/61; PULSE 97; RESP 20; TEMP 97.3; O2SAT 97
[2024-11-19 08:46] VITALS: BP 121/56; PULSE 70; RESP 18; TEMP 97.4; O2SAT 95
--- NOTE | 2024-11-19 10:50 | DVHPN2 ---
Reviewed: Care Plan, H&P, Labs, Medications Changes from previous H/P or p: No Changes General: Per HPI Gastrointestinal: Nausea, Vomiting Objective Vitals Vital Signs Date Time Temp Pulse Resp B/P (MAP) Pulse Ox O2 Delivery O2 Flow Rate FiO2 11/19/24 08:46 97.4 70 18 121/56 (77) 95 97.4 11/18/24 19:40 Nasal Cannula* 3 32 Intake/Output Intake and Output 11/19/24 07:00 Intake Total 2860 ml Output Total 1875 ml Balance 985 ml Intake Oral 700 ml IV Total 2160 ml Output Urine Total 1875 ml # Bowel Movements 1 General Appearance: Alert HEENT: Atraumatic, PERRLA Cardiovascular: Normal S1, Normal S2 Abdomen: Normal bowel sounds, Soft, No tenderness Back: Flank Tenderness, Midline Tenderness Musculoskeletal: Normal sensory function, Normal motor function Skin: Dry, Intact Medications Current Medications Medications Dose Ordered Sig/Efrain Route Start Time Stop Time Status Last Admin Dose Admin Memantine 10 mg Q12HR PO 11/14/24 22:00 11/18/24 20:41 10 MG Ondansetron HCl 4 mg Q4HP PRN IV 11/14/24 19:30 Enoxaparin Sodium 30 mg DAILY SC 11/15/24 10:00 11/18/24 09:34 30 MG Acetaminophen 650 mg Q6HP PRN PO 11/14/24 19:30 Ampicillin Sodium/ Sulbactam Sodium 3 gm/Sodium Chloride 100 ml @ 100 mls/hr Q6HR IV 11/15/24 10:30 11/19/24 10:12 100 MLS/HR Potassium Chloride 20 meq/ Dextrose 1,010 ml @ 75 mls/hr [id number] IV 11/16/24 10:30 11/18/24 17:57 75 MLS/HR Iron Sucrose 110 ml @ 110 mls/hr DAILY@1200 IV 11/16/24 12:00 11/20/24 12:59 11/18/24 12:27 110 MLS/HR Laboratory Results Laboratory Tests 11/18/24 06:51 Urinalysis Test 11/14/24 16:05 Urine Color Yellow (Yellow) Urine Clarity Clear (Clear) Urine pH 5.5 (5.0-9.0) Urine Specific [place] 1.016 (1.001-1.035) Urine Protein 1+ (Negative) H Urine Ketones Negative (Negative) Urine Blood Negative /uL (Negative) Urine Nitrite Negative (Negative) Urine Bilirubin Negative (Negative) Urine Urobilinogen Normal mg/dL (Negative) Urine Leukocyte Esterase Trace /uL (Negative) Urine RBC 1 /hpf (0 - 3) Urine Microscopic WBC 5 /HPF (0-3) H Urine Squamous Epithelial Cells Few /hpf (<5) Urine Bacteria None seen /hpf (None Seen) Urine Hyaline Casts Few /lpf (0 - 2) Urine Yeast (Budding) Occasional /hpf (None Urine Glucose Normal mg/dL (Normal) Microbiology Microbiology Date/Time Source Procedure Growth Status 11/15/24 00:05 Nose MRSA Screen - Final Complete 11/14/24 17:18 Blood Blood Culture - Preliminary NO GROWTH AFTER 72 HOURS OF INCUBATION. Resulted 11/14/24 16:05 Urine - Catheterized Urine Culture - Final Enterococcus faecalis Complete Labs and/or images reviewed: Labs reviewed by me, Image(s) reviewed by me Assessment/Plan Assessment/Plan Sepsis secondary to UTI: Urine cultures growing E faecalis, continue Unasyn Acute urinary tract infection Bilateral community-acquired pneumonia History of left hip fracture Hyponatremia Metabolic Anemia AFib Dementia Hypokalemia Joan test negative Flu test negative Time spent 55 minutes Nigel Priscila Khushboo [phone] at bedside Patient came from [facility] requesting another custodial facility Chest x-ray 11/18/2024 shows worsening infiltrates Will repeat urine cultures and blood cultures and chest x-ray for tomorrow Plan discussed with: Patient Date of Service: Nov 19, 2024 Billing Provider: ABBIE PALOMINO MD Common Visit Codes: [id number] INP/OBS CARE(HIGH) ABBIE PALOMINO MD Nov 19, 2024 10:50
[2024-11-19 13:00] VITALS: BP 110/48; PULSE 71; RESP 17; TEMP 97.1; O2SAT 93
[2024-11-19 17:00] VITALS: BP 129/54; PULSE 72; RESP 18; TEMP 97; O2SAT 95
[2024-11-19 21:00] VITALS: BP 106/41; PULSE 73; RESP 18; TEMP 97.8; O2SAT 95
[2024-11-20 01:00] VITALS: BP 123/33; PULSE 99; RESP 20; TEMP 98.1; O2SAT 92
[2024-11-20 05:00] VITALS: BP 99/49; PULSE 99; RESP 18; TEMP 98.3; O2SAT 91
--- NOTE | 2024-11-20 06:40 | DVH ---
EXAM: XR Chest, 1 View CLINICAL INDICATION: pneumonia TECHNIQUE: Frontal view of the chest. COMPARISON: XY CHEST PORTABLE on DOS: 11/18/24, XY CHEST PORTABLE on DOS: 11/16/24, XY CHEST PORTABLE on DOS: 11/14/24, XY CHEST XRAY 1 VIEW on DOS: 08/24/24 FINDINGS: LUNGS AND PLEURAL SPACES: Pulmonary congestion and edema. Pneumonia cannot be excluded. No pneumot horax. HEART: Unremarkable. No cardiomegaly. MEDIASTINUM: Unremarkable. Normal mediastinal contour. BONES/JOINTS: Unremarkable. No acute fracture. OTHER FINDINGS: . None. . .. IMPRESSION: Pulmonary congestion and edema. Pneumonia cannot be excluded.
[2024-11-20 06:50] LABS: White Blood Cell 5.3 10^3/uL (4.4-10.8)
[2024-11-20 06:53] LABS: Hemoglobin 8.3 g/dL (13.5-17.5); Mean Corpuscular Hemoglobin 30.7 pg (28.0-32.0); Mean Corpuscular Volume 92.9 fL (80.0-100.0); Platelet Count (auto) 122 10^3/uL (140-450); Red Blood Cells 2.69 10^6/uL (4.5-5.90); Red Cell Distribution Width 16.7 % (11.8-14.3)
[2024-11-20 07:13] LABS: Alanine Aminotransferase 16 U/L (7-40); Anion Gap 10 (5-15); Aspartate Aminotransferase 33 U/L (13-40); BUN/Creatinine Ratio 11.6 (10.0-20.0); Bilirubin, Total 0.3 mg/dL (0.2-1.0); Blood Urea Nitrogen 13 mg/dL (9-23); Glucose 77 mg/dL (74-106); Potassium 3.7 mmol/L (3.5-5.1); Sodium 140 mmol/L (136-145)
[2024-11-20 07:17] LABS: Albumin 2.3 g/dL (3.2-4.8); Alkaline Phosphatase 123 U/L (46-116); Calcium 6.9 mg/dL (8.7-10.4); Carbon Dioxide 19 mmol/L (20-31); Chloride 111 mmol/L (98-107); Total Protein 5.3 g/dL (5.7-8.2)
[2024-11-20 07:20] LABS: Band Neutrophils % (manual) 0; Basophils % (manual) 0 (0.0-2.0); Blast Cells 0; Myelocytes % 0; Promyelocytes % 0; Reactive Lymphocytes 0
[2024-11-20 09:00] VITALS: BP 109/43; PULSE 78; RESP 19; TEMP 97.3; O2SAT 99
[2024-11-20 10:41] LABS: Eosinophils % (manual) 5 (0-7); Lymphocytes % (manual) 22 (10.0-50.0); Metamyelocytes % 1; Monocytes % (manual) 8 (0-12); Platelet Estimate Decreased
--- NOTE | 2024-11-20 11:18 | DVHPN2 ---
Progress Note Date Seen: Nov 20, 2024 Medical Necessity Reason Pt with a Central, PICC or Fol: Yes The following are medically ne: Jules Catheter Reason for jules catheter: Strict I&O Subjective Patient reports: No new complaints Review of Systems: HEENT:Normal, CVS:Normal, RESPIRATORY:Normal, GI:Normal, :Normal, MSK:Normal, NEURO:Normal Objective vital signs Vital Sign Date Time Temp Pulse Resp B/P (MAP) Pulse Ox O2 Delivery O2 Flow Rate FiO2 11/20/24 08:00 Nasal Cannula* 3 32 11/20/24 05:00 98.3 99 18 99/49 (62) 91 98.3 Total Intake and Output 11/19/24 11/19/24 11/20/24 15:00 23:00 07:00 Intake Total 570 ml 1260 ml 300 ml Output Total 2450 ml 1425 ml Balance 570 ml -1190 ml -1125 ml medications Current Medications Medications Dose Ordered Sig/Efrain Route Start Time Stop Time Status Last Admin Dose Admin Memantine 10 mg Q12HR PO 11/14/24 22:00 11/20/24 09:37 10 MG Ondansetron HCl 4 mg Q4HP PRN IV 11/14/24 19:30 Enoxaparin Sodium 30 mg DAILY SC 11/15/24 10:00 11/20/24 09:37 30 MG Acetaminophen 650 mg Q6HP PRN PO 11/14/24 19:30 Iron Sucrose 110 ml @ 110 mls/hr DAILY@1200 IV 11/16/24 12:00 11/20/24 12:59 11/19/24 12:52 110 MLS/HR Furosemide 20 mg DAILY IV 11/21/24 10:00 UNV Examination: GENERAL:Normal, HEENT:Normal, NECK:Normal, LUNGS:Normal, LUNGS:Abnormal (on oxygen), CVS:Normal, ABDOMEN:Normal, MSK:Normal, SKIN:Normal, NEURO:Normal, :Normal laboratory and microbiology Laboratory Tests 11/20/24 06:14 Test 11/20/24 06:14 Range/Units Serum Glucose 77 74-106 mg/dL Microbiology Date/Time Source Procedure Growth Status 11/19/24 20:31 Voided Urine Urine Culture - Preliminary Resulted 11/15/24 00:05 Nose MRSA Screen - Final Complete 11/14/24 17:18 Blood Blood Culture - Final NO GROWTH AFTER 5 DAYS OF INCUBATION. Complete Problem List/Assessment/Plan Problem List/Assessment/Plan #1 uti ? #2 bilateral pneumonia ?sepsis: iv unasyn #3 anemia: stool occult positive, dc xarelto, iv iron #4 encephalopathy- metabolic #5 afib with secondary hypercoagulable state: dc xarelto #6 dementia #7 hypokalemia: replace #8 hypernatremia: free water #9 s/p left hip fracture #10 acute diastolic heart failure: lasix iv, dc ivf refusing to eat. will arrange family meeting advance care planning- full code- time spent 19 mins Plan discussed with: Patient, Son My Orders My Orders Orders - DAVID ROSA MD Procedure Category Date Status Time Furosemide Injection PHA 11/20/24 Logged (Lasix Injection) 11:15 Furosemide Injection PHA 11/21/24 Logged (Lasix Injection) 10:00 * Law Firm Receptionist CONS 11/20/24 Transmitted Consult Doxycycline PHA 11/20/24 Transmitted 100mg/100ml 11:30 Dietary Evaluation Review Comments: 1. Consider adding Ensure BID 700kcal, 40g pro 2. Continue current diet Expected Outcomes/Goals: 1. Pt will meet >75% of estimated needs within 3-5 days Date of Service: Nov 20, 2024 Billing Provider: DAVID ROSA MD Common Visit Codes: [id number] INP/OBS CARE(HIGH) Secondary Visit Codes: [id number] CARE PLAN 30 MINUTES DAVID ROSA MD Nov 20, 2024 11:18
[2024-11-20] MEDS: POTASSIUM EFFERVESENT TAB 25 MEQ PO ONE (12:37)
[2024-11-20] MEDS: FUROSEMIDE 20 MG/2 ML VIAL IV ONE (12:46)
[2024-11-20] MEDS: DOXYCYCLINE 100MG/100ML 100 ML IV SCH (12:47)
[2024-11-20 13:00] VITALS: BP 109/43; PULSE 86; RESP 18; TEMP 96.2; O2SAT 93
[2024-11-20 17:00] VITALS: BP 100/50; PULSE 75; RESP 15; TEMP 97.1; O2SAT 96
[2024-11-20 20:00] VITALS: BP 99/44; PULSE 68; RESP 16; TEMP 97.6; TEMP 97.9; O2SAT 87
[2024-11-21] VITALS (7 sets, daily range): BP systolic 96–118; BP diastolic 36–61; PULSE 69–92; RESP 17–19; TEMP 97.6–98.2; O2SAT 95–97
[2024-11-21 07:55] LABS: Anion Gap 11 (5-15); Carbon Dioxide 21 mmol/L (20-31); Chloride 107 mmol/L (98-107); Potassium 3.6 mmol/L (3.5-5.1); Sodium 139 mmol/L (136-145)
[2024-11-21 08:01] LABS: BUN/Creatinine Ratio 12.5 (10.0-20.0); Blood Urea Nitrogen 14 mg/dL (9-23)
[2024-11-21 08:05] LABS: Calcium 7.2 mg/dL (8.7-10.4); Glucose 70 mg/dL (74-106)
[2024-11-21] MEDS: POTASSIUM EFFERVESENT TAB 25 MEQ PO SCH (10:00)
--- NOTE | 2024-11-21 10:16 | DVHPN2 ---
Progress Note Date Seen: Nov 21, 2024 Medical Necessity Reason Pt with a Central, PICC or Fol: Yes The following are medically ne: Jules Catheter Reason for jules catheter: Strict I&O Subjective Patient reports: No new complaints Review of Systems: HEENT:Normal, CVS:Normal, RESPIRATORY:Normal, GI:Normal, :Normal, MSK:Normal, NEURO:Normal Objective vital signs Vital Sign Date Time Temp Pulse Resp B/P (MAP) Pulse Ox O2 Delivery O2 Flow Rate FiO2 11/21/24 04:44 97.9 69 17 104/44 (64) 95 97.9 11/20/24 20:00 Nasal Cannula* 3 32 Total Intake and Output 11/20/24 11/20/24 11/21/24 15:00 23:00 07:00 Intake Total 890 ml 600 ml Output Total 1527 ml 1430 ml Balance -637 ml -830 ml medications Current Medications Medications Dose Ordered Sig/Efrain Route Start Time Stop Time Status Last Admin Dose Admin Memantine 10 mg Q12HR PO 11/14/24 22:00 11/20/24 20:33 10 MG Ondansetron HCl 4 mg Q4HP PRN IV 11/14/24 19:30 Enoxaparin Sodium 30 mg DAILY SC 11/15/24 10:00 11/20/24 09:37 30 MG Acetaminophen 650 mg Q6HP PRN PO 11/14/24 19:30 Furosemide 20 mg DAILY IV 11/21/24 10:00 Doxycycline Hyclate 100 ml @ 50 mls/hr Q12H IV 11/20/24 11:30 11/20/24 23:29 50 MLS/HR Potassium Bicarbonate 25 meq DAILY PO 11/21/24 10:00 Examination: GENERAL:Normal, HEENT:Normal, NECK:Normal, LUNGS:Normal, CVS:Normal, ABDOMEN:Normal, MSK:Normal, SKIN:Normal, NEURO:Normal, :Normal laboratory and microbiology Laboratory Tests 11/21/24 06:18 11/20/24 06:14 Test 11/21/24 06:18 Range/Units Serum Glucose 70 L 74-106 mg/dL Microbiology Date/Time Source Procedure Growth Status 11/19/24 20:31 Voided Urine Urine Culture - Preliminary Resulted 11/19/24 12:00 Blood Blood Culture - Preliminary NO GROWTH AFTER 24 HOURS OF INCUBATION. Resulted 11/15/24 00:05 Nose MRSA Screen - Final Complete Problem List/Assessment/Plan Problem List/Assessment/Plan #1 uti ? #2 bilateral pneumonia ?sepsis: iv unasyn #3 anemia: stool occult positive, dc xarelto, iv iron #4 encephalopathy- metabolic #5 afib with secondary hypercoagulable state: dc xarelto #6 dementia #7 hypokalemia: replace #8 hypernatremia: free water #9 s/p left hip fracture #10 acute diastolic heart failure: lasix iv, dc ivf refusing to eat today advance care planning- full code- time spent 19 mins Plan discussed with: Patient My Orders My Orders Orders - DAVID ROSA MD Procedure Category Date Status Time Furosemide Injection PHA 11/21/24 In Process (Lasix Injection) 10:00 * Second Shift Supervisor CONS 11/20/24 Transmitted Consult Doxycycline PHA 11/20/24 In Process 100mg/100ml 11:30 Pt Request For Service PT 11/20/24 Logged 11:17 Potassium Effervesent PHA 11/21/24 In Process Tab (Klor-Con/Ef) 10:00 * Second Shift Supervisor CONS 11/20/24 Transmitted Consult Dietary Evaluation Review Comments: 1. Consider adding Ensure BID 700kcal, 40g pro 2. Continue current diet Expected Outcomes/Goals: 1. Pt will meet >75% of estimated needs within 3-5 days Date of Service: Nov 21, 2024 Billing Provider: DAVID ROSA MD Common Visit Codes: [id number] INP/OBS CARE(HIGH) DAVID ROSA MD Nov 21, 2024 10:16
[2024-11-21] MEDS: FUROSEMIDE 20 MG/2 ML VIAL IV SCH (11:00)
[2024-11-21] MEDS: PANTOPRAZOLE 40 MG TAB PO ONE (11:07)
[2024-11-22 01:00] VITALS: BP 111/57; PULSE 77; RESP 18; TEMP 98.1; O2SAT 96
[2024-11-22 05:00] VITALS: BP 112/61; PULSE 75; RESP 18; TEMP 98; O2SAT 100
--- NOTE | 2024-11-22 05:31 | DVH ---
EXAM: XR Chest, 1 View CLINICAL INDICATION: chf TECHNIQUE: Frontal view of the chest. COMPARISON: XY CHEST XRAY 1 VIEW on DOS: 11/20/24, XY CHEST PORTABLE on DOS: 11/18/24, XY CHEST TERESA BLE on DOS: 11/16/24, XY CHEST PORTABLE on DOS: 11/14/24, XY CHEST XRAY 1 VIEW on DOS: 08/24/24 FINDINGS: LUNGS AND PLEURAL SPACES: Right pleural effusion. HEART: Cardiomegaly with mild congestion. MEDIASTINUM: Unremarkable. Normal mediastinal contour. BONES/JOINTS: Unremarkable. No acute fracture. OTHER FINDINGS: . None. ... IMPRESSION: Cardiomegaly with mild congestion.
[2024-11-22] MEDS: PANTOPRAZOLE 40 MG TAB PO SCH (05:48)
[2024-11-22 08:15] VITALS: RESP 16
[2024-11-22 08:31] VITALS: BP 102/81; PULSE 101; RESP 18; TEMP 98; O2SAT 95
--- NOTE | 2024-11-22 10:47 | DVHDS ---
DATE OF DISCHARGE: 11/22/2024 HISTORY OF PRESENT ILLNESS: The patient is an 88-year-old gentleman who was admitted with history of progressive weakness and refusing to eat. He has history of atrial fibrillation, dementia and a recent hip surgery. HOSPITAL COURSE: The patient was noted to be hyponatremic with hypokalemia. The patient has since been corrected and his potassium and sodium are back to normal. The patient had a urine culture that grew Enterococcus faecalis. He was treated with antibiotics. The patient had chest x-ray that showed evidence of congestive heart failure and he was diuresed. His repeat urine is showing yeast. The patient was anemic and was taken off of Xarelto. The patient will now be transferred to a [facility] facility with medications as per medication reconciliation. FINAL DIAGNOSES: Therefore, * Urinary tract infection with Enterococcus faecalis. * Bilateral pneumonia with questionable sepsis, questionably secondary to aspiration. * Anemia. * Encephalopathy, metabolic. * Atrial fibrillation with secondary hypercoagulable state. * Dementia. * Hypokalemia. * Hyponatremia. * Status post left hip fracture. * Acute diastolic heart failure. Time spent in discharge planning and review of plan with the patient's family and nursing was 38 minutes. MD MAXWELL Bañuelos/RITA TID: [id number] RECEIPT: [id number]
[2024-11-22 12:14] VITALS: BP 102/81; TEMP 36.7
== END 2024-11-22 17:15 | DRG 871 ==
LOC: EDBD 13:36 → ER 13:36 → OVERFLOW 19:26 → CENTRAL 21:45
PROVIDERS: ADMIT Internal Medicine; ATTEND Internal Medicine
DX: A41.9 Sepsis, unspecified organism (principal); G93.41 Metabolic encephalopathy; I50.31 Acute diastolic (congestive) heart failure; J69.0 Pneumonitis due to inhalation of food and vomit; J18.9 Pneumonia, unspecified organism; N17.9 Acute kidney failure, unspecified; E87.0 Hyperosmolality and hypernatremia; D68.69 Other thrombophilia; E44.0 Moderate protein-calorie malnutrition; N39.0 Urinary tract infection, site not specified; E87.1 Hypo-osmolality and hyponatremia; Z20.822 Contact with and (suspected) exposure to COVID-19; F03.90 Unspecified dementia, unspecified severity, without behavioral disturbance, psychotic disturbance, mood disturbance, and anxiety; E87.6 Hypokalemia; D64.9 Anemia, unspecified; I48.91 Unspecified atrial fibrillation; Z68.20 Body mass index [BMI] 20.0-20.9, adult; B95.2 Enterococcus as the cause of diseases classified elsewhere
CPT/HCPCS: 36415; 71045; 80048; 80053; 81001; 82270; 82962; 83605; 83735; 83880; 84484; 85007; 85025; 85027; 85610; 85730; 87040; 87081; 87086; 87088; 87186; 87426; 87804; 96365; 97110; 97116; 97162; 97163; 97530; 99291; G0378; J0692; J1756; J2003; J3480